=== PATIENT | male | born 1940 | race Caucasian/White ===

== ENCOUNTER 2018-01-25 11:35 | Outpatient (CLI) | payer MEDICARE ==
--- NOTE | 2018-01-25 23:59 | XRay Report ---
FINAL REPORT PROCEDURE: Three-view lumbar sacral spine series TECHNIQUE: Lumbar spine radiographs, including AP, lateral, and lumbosacral spot views. CPT 41140 HISTORY: BACK PAIN COMPARISON: No prior studies are available for comparison. FINDINGS: No fracture is visualized. There is mild thoracolumbar scoliosis convex the left apex at L1. There is also mild lumbar scoliosis convex the right apex at L3-4 disc space. There is moderate diffuse degenerative disc disease visualized lower thoracic and lumbar spine with disc space narrowing a marginal osteophyte formation. There is grade 1 spondylolisthesis L4 in relation L5 which appears to be degenerative. I do not see evidence of spondylolysis. Mild degenerative changes are seen in the SI joints. Moderate facet arthritis visualized inferiorly. Atherosclerotic changes seen in the abdominal aorta. An aneurysm is not identified. IMPRESSION: There is degenerative disc disease and facet arthritis as described above. There also scoliosis. No fracture is seen. There is grade 1 degenerative spondylolisthesis L4 in relation to L5..
== END 2018-01-25 11:36 | disposition home or self-care (01) ==
LOC: SPVIMAG 11:35
DX: M41.85 Other forms of scoliosis, thoracolumbar region (principal); M51.35 Other intervertebral disc degeneration, thoracolumbar region; M43.16 Spondylolisthesis, lumbar region; M47.897 Other spondylosis, lumbosacral region; I70.0 Atherosclerosis of aorta
CPT/HCPCS: 72100

== ENCOUNTER 2018-04-30 10:00 | Outpatient (CLI) | payer MEDICARE ==
--- NOTE | 2018-05-05 16:19 | Vascular Lab Report ---
Left Lower Extremity Venous Duplex Study: Reason for Exam: Pain and swelling of the left lower extremity. Comments on the Right: A limited duplex study was done of the proximal veins of the right lower extremity. All veins visualized are freely compressible without evidence of internal echogenicity. Flow is spontaneous and phasic throughout. No evidence of acute or chronic thrombus is seen in any of the vessels visualized. Comments on the Left: All veins visualized are freely compressible without evidence of internal echogenicity. Flow is spontaneous and phasic throughout. No evidence of acute or chronic thrombus is seen in any of the vessels visualized. A soft tissue change in the left knee area is consistent with a Rubio's cyst. Impression: No evidence of acute or chronic deep venous thrombosis in the left lower extremity. A soft tissue change in the left knee area is consistent with a Rubio's cyst.
--- NOTE | 2018-05-05 16:20 | Vascular Lab Report ---
LOWER EXTREMITY ARTERIAL DUPLEX: REASON FOR EXAM: Left thigh pain. COMMENTS ON THE RIGHT: A limited study was done of the right lower extremity. Biphasic waveforms and normal velocities are seen distally. Little if any plaque is seen in the tibial vessels. COMMENTS ON THE LEFT: Triphasic waveforms are seen proximally. Biphasic waveforms are seen distally. No significant velocity gradients are identified. No significant plaque is identified. Findings are consistent with normal perfusion. Findings are consistent with the ability to heal distal wounds. IMPRESSION: RIGHT: Essentially normal arterial flow. LEFT:Essentially normal arterial flow.
== END 2018-04-30 10:01 | disposition home or self-care (01) ==
LOC: VAS 10:00
DX: M79.652 Pain in left thigh (principal); M79.662 Pain in left lower leg; M79.89 Other specified soft tissue disorders; Z87.891 Personal history of nicotine dependence; I10 Essential (primary) hypertension; E78.5 Hyperlipidemia, unspecified; Z82.49 Family history of ischemic heart disease and other diseases of the circulatory system

== ENCOUNTER 2020-01-06 06:19 | Inpatient (IN) | payer MEDICARE ==
[2020-01-06] MEDS ORDERED: SODIUM CHLORIDE 0.9% 1000 ML 1,000 ML IV ONE ×2 (07:04→11:26)
--- NOTE | 2020-01-06 07:14 | Emergency Department Report ---
ED General Adult HPI - General Chief complaint: Syncope Stated complaint: GENERAL WEAKNESS Time Seen by Provider: 01/06/20 06:50 Source: family, EMS ( EMS documentation not available at time of chart dictation ), RN notes reviewed Mode of arrival: Stretcher Limitations: Language Barrier - History of Present Illness Initial comments: Patient is an 79-year-old gentleman. He is not known to myself previously. Primary care doctor: Dr. Franko Smith Cardiology: Dr. Abida Thompson He was brought to the hospital by EMS and with family. The patient has a histor y of Concha wayne, currently on Pradaxa, possible hypertension and diabetes. He was apparently admitted to another hospital a few days ago for issues with "low blood pressure." This is as per collateral information from family. Today, he is brought to the hospital by EMS with reports of abdominal pain, chest tightness, and loss of consciousness while defecating. The patient is a poor historian. He is not able to describe the qualitative nature of his symptoms, exacerbating or relieving factors. Family at the bedside, they do not believe he has had any bright red blood per rectum or hematemesis, they are not certain about urinary symptoms, they are not certain about a fever. -: Sudden Location: chest, abdomen Quality: other Consistency: other Improves with: other Worsens with: other Associated Symptoms: other - Related Data Home Medications Medication Instructions Recorded Confirmed Last Taken Aspirin [Aspirin BABY CHEW TAB] 81 mg PO DAILY 07/16/13 01/16/14 01/15/14 Atorvastatin (Nf) [Lipitor] 20 mg PO QHS 07/16/13 01/16/14 01/15/14 lisinopriL [Zestril TAB] 10 mg PO QDAY 07/16/13 01/16/14 01/15/14 Nitroglycerin [Nitrostat] 0.4 mg SL Q5M 11/23/13 01/16/14 Unknown Mirtazapine Solutab [Remeron 15mg 15 mg PO QHS 01/16/14 01/16/14 01/15/14 Solutab] Previous Rx's Medication Instructions Recorded Last Taken Type Amiodarone [Cordarone 200 MG TAB] 200 mg PO DAILY #30 tablet 01/17/14 Unknown Rx Warfarin [Coumadin] 3 mg PO QDAY #30 tablet 03/25/14 Unknown Rx Allergies Allergy/AdvReac Type Severity Reaction Status Date / Time acetaminophen [From [place]] Allergy Unknown Verified 07/16/13 02:36 ethambutol HCl Allergy Unknown Verified 07/16/13 02:36 [From Myambutol] hydrocodone bitartrate Allergy Unknown Verified 07/16/13 02:36 [From [place]] levofloxacin [From Levaquin] Allergy Swelling Verified 07/16/13 02:33 naproxen Allergy Unknown Verified 07/16/13 02:36 tramadol HCl [From Ultram] Allergy Unknown Verified 07/16/13 02:36 allpurinol Allergy Unknown Uncoded 07/16/13 02:36 sulindac Allergy Unknown Uncoded 07/16/13 02:36 ED Review of Systems ROS: Stated complaint: GENERAL WEAKNESS Other details as noted in HPI Comment: Unobtainable due to pts medical conditions Constitutional: malaise Cardiovascular: syncope Gastrointestinal: abdominal pain Genitourinary: as per HPI Musculoskeletal: back pain Skin: as per HPI Neurological: as per HPI, weakness Psychiatric: as per HPI Hematological/Lymphatic: as per HPI ED Past Medical Hx - Past Medical History Hx Hypertension: Yes Hx Heart Attack/AMI: Yes Hx Congestive Heart Failure: No Hx Diabetes: Yes Hx Asthma: No Hx COPD: No Hx HIV: No Additional medical history: high cholesterol,. Coronary artery disease. A. Fib - Surgical History Past Surgical History?: Yes Hx Open Heart Surgery: Yes (x2, most recent 2000) Additional Surgical History: Hernia repair, colon surgery (patient/family unaware of indication) - Social History Smoking Status: Former Smoker - Medications Home Medications: Home Medications Medication Instructions Recorded Confirmed Last Taken Type Aspirin [Aspirin BABY CHEW TAB] 81 mg PO DAILY 07/16/13 01/16/14 01/15/14 History Atorvastatin (Nf) [Lipitor] 20 mg PO QHS 07/16/13 01/16/14 01/15/14 History lisinopriL [Zestril TAB] 10 mg PO QDAY 07/16/13 01/16/14 01/15/14 History Nitroglycerin [Nitrostat] 0.4 mg SL Q5M 11/23/13 01/16/14 Unknown History Mirtazapine Solutab [Remeron 15mg 15 mg PO QHS 01/16/14 01/16/14 01/15/14 History Solutab] Amiodarone [Cordarone 200 MG TAB] 200 mg PO DAILY #30 tablet 01/17/14 Unknown Rx Warfarin [Coumadin] 3 mg PO QDAY #30 tablet 01/17/14 Unknown Rx ED Physical Exam - General Limitations: Language Barrier General appearance: alert, anxious - Head Head exam: Present: atraumatic, normocephalic - Eye Eye exam: Present: normal appearance, EOMI - ENT ENT exam: Present: normal exam, normal orophraynx, mucous membranes moist, normal external ear exam - Neck Neck exam: Present: normal inspection, full ROM. Absent: tenderness, meningismus - Respiratory Respiratory exam: Present: decreased breath sounds. Absent: respiratory distress, wheezes, rales, rhonchi, stridor - Cardiovascular Cardiovascular Exam: Present: regular rate, irregular rhythm. Absent: systolic murmur, diastolic murmur, rubs, gallop - GI/Abdominal GI/Abdominal exam: Present: soft, normal bowel sounds. Absent: distended, tenderness, guarding, rebound, rigid, pulsatile mass - Rectal Rectal exam: Present: normal inspection, normal rectal tone, heme (-) stool, other (Chaperoned by nurse Vinayak Garrett). Absent: heme (+) stool, black stool, bloody stool, fecal impaction, hemorrhoids, mass, tenderness - Extremities Exam Extremities exam: Present: normal inspection, full ROM, other (Moving 4 extremities spontaneously. There is no long bony tenderness. The pelvis is stable. Muscular compartments soft) - Back Exam Back exam: Present: normal inspection. Absent: tenderness, CVA tenderness (R), CVA tenderness (L), muscle spasm, paraspinal tenderness, vertebral tenderness - Neurological Exam Neurological exam: Present: alert (There is no facial droop. The tongue is midline. The extraocular movements are intact bilaterally.), other (The patient is awake. He is moving 4 extremities spontaneously. He is noted to be speaking in complete sentences as per family. He is not lethargic.) - Psychiatric Psychiatric exam: Present: anxious - Skin Skin exam: Present: warm, dry, intact, normal color. Absent: rash ED Course Vital Signs 01/06/20 01/06/20 01/06/20 06:42 06:45 06:48 Temperature Pulse Rate 70 68 68 Respiratory 24 17 17 Rate Blood Pressure 64/31 Blood Pressure 65/29 [Left] Blood Pressure 69/28 [Right] O2 Sat by Pulse 100 Oximetry 01/06/20 01/06/20 01/06/20 07:00 07:16 07:30 Temperature Pulse Rate 75 76 76 Respiratory 13 23 19 Rate Blood Pressure 64/31 64/31 64/31 Blood Pressure [Left] Blood Pressure [Right] O2 Sat by Pulse 95 Oximetry 01/06/20 01/06/20 01/06/20 07:45 08:00 08:10 Temperature Pulse Rate 83 82 Respiratory 29 H 24 24 Rate Blood Pressure 60/18 98/36 Blood Pressure [Left] Blood Pressure [Right] O2 Sat by Pulse 100 95 99 Oximetry 01/06/20 01/06/20 01/06/20 08:12 08:33 08:45 Temperature 97.9 F Pulse Rate 78 82 76 Respiratory 17 26 H Rate Blood Pressure 64/31 81/36 Blood Pressure [Left] Blood Pressure 98/36 [Right] O2 Sat by Pulse 99 99 Oximetry 01/06/20 01/06/20 01/06/20 09:00 09:15 09:30 Temperature Pulse Rate 79 72 75 Respiratory 25 H 17 29 H Rate Blood Pressure 70/33 83/35 87/36 Blood Pressure [Left] Blood Pressure [Right] O2 Sat by Pulse 100 96 100 Oximetry 01/06/20 09:45 Temperature Pulse Rate 88 Respiratory 26 H Rate Blood Pressure 89/35 Blood Pressure [Left] Blood Pressure [Right] O2 Sat by Pulse 100 Oximetry - Reevaluation(s) Reevaluation #1: 01/06/20 07:13 Differential diagnosis, including but not limited to: Orthostasis, vagal event, structural cardiac disease, intracranial hemorrhage, retroperitoneal hemorrhage, pneumonia, urinary tract infection, thyroid derangement, electrolyte derangement, medication interaction Assessment and plan: 79-year-old gentleman, with history of syncope, hypotension, guaiac negative on rectal exam, awake, alert, moving 4 extremities and protecting his airway. We will obtain IV access, initiate IV fluid therapy, obtain appropriate laboratory studies, x-ray the chest, EKG, noncontrast CT scan of the brain, cervical spine, abdomen/pelvis, and reassess. Reevaluation #2: 01/06/20 09:32 blood pressure is improved, 102/40. CT scan brain, cervical spine, abdomen pelvis negative for acute disease, x-ray of the chest is negative for acute disease. Labs show renal insufficiency, lactic acidosis, elevated TSH, hemoglobin 9, hematocrit 29, platelet count within normal limits, case is presented to hospital physician, Dr. Montanez, who admits patient to the medical service. 01/06/20 09:33 01/06/20 09:35 - EJ/Peripheral Line Neck L Time Out Performed: Yes Indications: nurses unable to establis Skin Cleansed in Sterile Fashion: Yes Size: 20 Dressing Placed: Tegaderm Patient Tolerated Procedure: well Neck R Time Out Performed: Yes Indications: nurses unable to establis Skin Cleansed in Sterile Fashion: Yes Size: 18 Dressing Placed: Tegaderm Patient Tolerated Procedure: well ED Medical Decision Making - Lab Data Result diagrams: 01/06/20 07:40 01/06/20 07:40 Vital Signs 01/06/20 06:48 Pulse Rate 68 Respiratory 17 Rate Blood Pressure 65/29 [Left] Blood Pressure 69/28 [Right] O2 Sat by Pulse 100 Oximetry - EKG Data -: EKG Interpreted by Az - EKG Data 01/06/20 09:57 Atrial fibrillation, 88 bpm, variable ventricular rate, QTC 475 ms, left axis deviation, poor R wave progression, not a STEMI. - Radiology Data Radiology results: pending, report reviewed, image reviewed Critical Care Time: Yes Critical care time in (mins) excluding proc time.: 60 Critical care attestation.: If time is entered above; I have spent that time in minutes in the direct care of this critically ill patient, excluding procedure time. ED Disposition Clinical Impression: SIRS (systemic inflammatory response syndrome), MATTHEW (acute kidney injury), Hypotension, History of syncope Disposition: OP ADMIT IP TO THIS HOSP Is pt being admited?: Yes Does the pt Need Aspirin: No Condition: Critical Referrals: PRIMARY CARE, [Primary Care Provider] - 3-5 Days
[2020-01-06 07:58] LABS: Hematocrit 29.3 % (35.5-45.6); Hemoglobin 9.2 gm/dl (11.8-15.2); Mean Corpuscular HGB Conc 31 % (32-34); Platelet Count 238 K/mm3 (140-440); Red Blood Count 4.33 M/mm3 (3.65-5.03); Red Cell Distribution Width 18.7 % (13.2-15.2)
--- NOTE | 2020-01-06 08:02 | XRay Report ---
CHEST 1 VIEW INDICATION / CLINICAL INFORMATION: syncope chest tightness. COMPARISON: 12/02/2014 FINDINGS: SUPPORT DEVICES: None. HEART / MEDIASTINUM: No significant abnormality. LUNGS / PLEURA: Mild chronic biapical pleural-parenchymal scarring.. Probable trace bilateral pleural effusions. No convincing evidence of pneumonia No pneumothorax. ADDITIONAL FINDINGS: No significant additional findings. IMPRESSION: 1. No acute findings. No interval change. Signer Name: Uzma Duque MD Signed: 01/06/2020 7:57 AM Workstation Name: [email or web address]
[2020-01-06 08:05] LABS: Mean Corpuscular Volume 68 fl (84-94)
[2020-01-06 08:10] LABS: INR 2.19 (0.87-1.13)
[2020-01-06 08:23] LABS: Albumin 2.9 g/dL (3.9-5); Calcium 8.4 mg/dL (8.4-10.2)
[2020-01-06 08:31] LABS: Band Neutrophils # (Manual) 1.9 K/mm3; Basophils % (Manual) 0 % (0.0-1.8); Hypochromasia 2+; Platelet Estimate Consistent w Auto; Total Cells Counted 100
[2020-01-06 08:32] LABS: Schistocytes Few; Target Cells Few; Tear Drop Cells Few
[2020-01-06] MEDS ORDERED: SODIUM CHLORIDE 0.9% 1000 ML 2,000 ML IV ONE (08:50)
[2020-01-06 08:57] LABS: Chol/HDL Ratio 2.5 %
--- NOTE | 2020-01-06 08:59 | Cat Scan Report ---
CT ABDOMEN AND PELVIS WITHOUT CONTRAST HISTORY: MAIN: abd pain hypotension syncope rph fall COMPARISON: None. TECHNIQUE: Axial CT images were obtained through the abdomen and pelvis without IV contrast. Sagittal and coronal reformatted images. All CT scans at this location are performed using CT dose reduction for ALARA by means of automated exposure control. FINDINGS: CT ABDOMEN: Lung Bases: Clear. Liver: No significant abnormality. Biliary: Cholecystectomy. No biliary dilatation is appreciated. Spleen: No significant abnormality. Unenlarged. Pancreas: No significant abnormality. Adrenals: No significant abnormality. Kidneys: No significant abnormality. Lymphatics: No lymphadenopathy. Vasculature: There are moderate diffuse aortic calcifications. No aneurysm. Bowel/Peritoneum: No significant abnormality. No free air. No free fluid. Normal appendix. CT PELVIS: : No significant abnormality. Osseous Structures: Osteopenia. Degenerative changes in the spine and hips. No acute fracture is dete cted. Additional Findings: None IMPRESSION: No acute process is identified in the abdomen or pelvis. Chronic findings as described above. Signer Name: Earl Ortega Jr, MD Signed: 01/06/2020 8:55 AM Workstation Name: [id number]
[2020-01-06] MEDS ORDERED: cefTRIAXone/NS 2 GM/100 ML 2 GM/100 ML BAG IV SCH (09:00)
--- NOTE | 2020-01-06 09:05 | Cat Scan Report ---
CT CERVICAL SPINE WITHOUT CONTRAST INDICATION: Syncope. TECHNIQUE: Axial CT images of the spine were obtained. Sagittal and coronal reformatted images were produced. Al l CT scans at this location are performed using CT dose reduction for ALARA by means of automated exp osure control. COMPARISON: None available. FINDINGS: ACUTE FRACTURE(S) OR SUBLUXATION: None. SPINAL DEGENERATIVE CHANGES: There is moderate disc height loss at C6-7 with reactive endplate osteop hyte formation. There is mild bilateral facet DJD at C4-5 and C5-6. PARASPINAL SOFT TISSUES: No soft tissue swelling or other acute abnormalities. ADDITIONAL FINDINGS: There is extensive biapical pleural scarring in the lung apices. IMPRESSION: 1. No acute fracture or subluxation in the spine in neutral position. Signer Name: Pedro Marte MD Signed: 01/06/2020 9:00 AM Workstation Name: [id number]
--- NOTE | 2020-01-06 09:09 | Cat Scan Report ---
NONENHANCED CT SCAN OF THE HEAD: INDICATION / CLINICAL INFORMATION: 79 years Male; MAIN: Syncope fall. TECHNIQUE: Routine CT head without contrast. All CT scans at this location are performed using CT dos e reduction for ALARA by means of automated exposure control. COMPARISON: CT scan of the head from 07/16/2013 FINDINGS: BRAIN / INTRACRANIAL CONTENTS: No intracranial sequela from the trauma. No scalp hematoma. No air-flu id level in the visualized portions of the paranasal sinuses. No acute hemorrhage, mass effect, midline shift, hydrocephalus, or acute, large territorial infarct. No chronic infarct or focal atrophy. Cortical sulci are slightly. As seen in the last CT scan, punctate calcification is seen in the right superior frontal sulcus and also in one of the right parietal lobe sulci.. In addition, larger calcification is seen in the right middle frontal gyrus laterally. These remain unchanged. Calcifications in the sulci are probably rebecca cified emboli.. However, right middle frontal gyrus calcification is nonspecific. CRANIOCERVICAL JUNCTION: No significant abnormality. ORBITS: No significant abnormality of visualized orbits. SINUSES / MASTOIDS: No significant abnormality of the visualized paranasal sinuses or mastoid air adriano ls. ADDITIONAL FINDINGS: None. IMPRESSION: No intracranial sequela from the trauma. Signer Name: Johan Wyatt MD Signed: 01/06/2020 9:05 AM Workstation Name: [id number]
[2020-01-06] MEDS ORDERED: LEVOTHYROXINE 100 MCG INJ IV ONE (10:30)
--- NOTE | 2020-01-06 11:38 | History and Physical Report ---
History of Present Illness Date of examination: 01/06/20 Date of admission: 01/06/20 10:12 Chief complaint: LOC History of present illness: Patient was seen and examined. Follow-up on current diagnosis. Overnight uneventful as no events directly reported to me. Patient denies any chest pain, shortness breath, nausea/vomiting or severe headaches. Imaging, nursing note, chart, labs and old chart reviewed. Discussed with patient. PMH: as hpi PSH: cabg, colon surgery?hernia SH: no tob, no etoh, no illicit drugs FH: he denies ROS: Constitutional: denies: fever ENT: denies: throat or neck pain Respiratory: denies: cough, shortness of breath Cardiovascular: denies: chest pain Endocrine: denies unexplained weight loss or gain Gastrointestinal: denies: abdominal pain, nausea Genitourinary: denies: dysuria Rectal: denies no incontinence, no bleeding, no itching, no discharge Musculoskeletal: denies swelling, myaglia, muscle weakness Skin: denies: rash Neurological: denies: headache +syncope Hematological/Lymphatic: denies: easy bleeding or easy bruising Allergic/Immunologic: no urticaria, no allergic rhinitis, no anaphylaxis Psych: denies sadness or hopelessness, SI/HI Medications and Allergies Allergies Allergy/AdvReac Type Severity Reaction Status Date / Time acetaminophen [From [place]] Allergy Unknown Verified 07/16/13 02:36 ethambutol HCl Allergy Unknown Verified 07/16/13 02:36 [From Myambutol] hydrocodone bitartrate Allergy Unknown Verified 07/16/13 02:36 [From Royal] levofloxacin [From Levaquin] Allergy Swelling Verified 07/16/13 02:33 naproxen Allergy Unknown Verified 07/16/13 02:36 tramadol HCl [From Ultram] Allergy Unknown Verified 07/16/13 02:36 allpurinol Allergy Unknown Uncoded 07/16/13 02:36 sulindac Allergy Unknown Uncoded 07/16/13 02:36 Home Medications Medication Instructions Recorded Confirmed Last Taken Type Aspirin [Aspirin BABY CHEW TAB] 81 mg PO DAILY 07/16/13 01/16/14 01/15/14 History Atorvastatin (Nf) [Lipitor] 20 mg PO QHS 07/16/13 01/16/14 01/15/14 History lisinopriL [Zestril TAB] 10 mg PO QDAY 07/16/13 01/16/14 01/15/14 History Nitroglycerin [Nitrostat] 0.4 mg SL Q5M 11/23/13 01/16/14 Unknown History Mirtazapine Solutab [Remeron 15mg 15 mg PO QHS 01/16/14 01/16/14 01/15/14 History Solutab] Amiodarone [Cordarone 200 MG TAB] 200 mg PO DAILY #30 tablet 01/17/14 Unknown Rx Warfarin [Coumadin] 3 mg PO QDAY #30 tablet 01/17/14 Unknown Rx Active Meds: Active Medications Sodium Chloride (Nacl 0.9% 1000 Ml) 1,000 mls @ 999 mls/hr IV BOLUS ONE Stop: 01/06/20 12:26 Exam - Physical Exam Narrative exam: Gen: thin frail, NAD, Awake, Alert, Orientated x 3 with many hints HEENT: NCAT, EOMI, PERRL, OP Clear Neck: supple, no adenopathy, no thyromegaly, no JVD CVS/Heart: RRR, normal S1S2, pulses present bilaterally Chest/Lungs: CTA B, Symmetrical chest expansion, good air entry bilaterally GI/Abdomen: soft, NTND, good bowel sounds, no guarding or rebound /Bladder: no suprapubic tenderness, no CVA or paraspinal tenderness Extermity/Skin: no c/c/e, no obvious rash MSK: FROM x 4 Neuro: CN 2-12 grossly intact, no new focal deficits Psych: calm - Constitutional Vitals: Temp Pulse Resp BP Pulse Ox 97.9 F 84 12 99/35 100 01/06/20 08:12 01/06/20 11:15 01/06/20 11:15 01/06/20 11:15 01/06/20 11:15 Results - Labs CBC & Chem 7: 01/06/20 07:40 01/06/20 07:40 Labs: Laboratory Last Values WBC 14.9 K/mm3 (4.5-11.0) H 01/06/20 07:40 RBC 4.33 M/mm3 (3.65-5.03) 01/06/20 07:40 Hgb 9.2 gm/dl (11.8-15.2) L 01/06/20 07:40 Hct 29.3 % (35.5-45.6) L 01/06/20 07:40 MCV 68 fl (84-94) L 01/06/20 07:40 MCH 21 pg (28-32) L 01/06/20 07:40 MCHC 31 % (32-34) L 01/06/20 07:40 RDW 18.7 % (13.2-15.2) H 01/06/20 07:40 Plt Count 238 K/mm3 (140-440) 01/06/20 07:40 Add Manual Diff Complete 01/06/20 07:40 Total Counted 100 01/06/20 07:40 Seg Neuts % (Manual) 79.0 % (40.0-70.0) H 01/06/20 07:40 Band Neutrophils % 13.0 % 01/06/20 07:40 Lymphocytes % (Manual) 2.0 % (13.4-35.0) L 01/06/20 07:40 Reactive Lymphs % (Man) 2.0 % 01/06/20 07:40 Monocytes % (Manual) 3.0 % (0.0-7.3) 01/06/20 07:40 Eosinophils % (Manual) 1.0 % (0.0-4.3) 01/06/20 07:40 Basophils % (Manual) 0 % (0.0-1.8) 01/06/20 07:40 Metamyelocytes % 0 % 01/06/20 07:40 Myelocytes % 0 % 01/06/20 07:40 Promyelocytes % 0 % 01/06/20 07:40 Blast Cells % 0 % 01/06/20 07:40 Nucleated RBC % Not Reportable 01/06/20 07:40 Seg Neutrophils # Man 11.8 K/mm3 (1.8-7.7) H 01/06/20 07:40 Band Neutrophils # 1.9 K/mm3 01/06/20 07:40 Lymphocytes # (Manual) 0.3 K/mm3 (1.2-5.4) L 01/06/20 07:40 Abs React Lymphs (Man) 0.3 K/mm3 01/06/20 07:40 Monocytes # (Manual) 0.4 K/mm3 (0.0-0.8) 01/06/20 07:40 Eosinophils # (Manual) 0.1 K/mm3 (0.0-0.4) 01/06/20 07:40 Basophils # (Manual) 0.0 K/mm3 (0.0-0.1) 01/06/20 07:40 Metamyelocytes # 0.0 K/mm3 01/06/20 07:40 Myelocytes # 0.0 K/mm3 01/06/20 07:40 Promyelocytes # 0.0 K/mm3 01/06/20 07:40 Blast Cells # 0.0 K/mm3 01/06/20 07:40 WBC Morphology Not Reportable 01/06/20 07:40 Hypersegmented Neuts Not Reportable 01/06/20 07:40 Hyposegmented Neuts Not Reportable 01/06/20 07:40 Hypogranular Neuts Not Reportable 01/06/20 07:40 Smudge Cells Not Reportable 01/06/20 07:40 Toxic Granulation Not Reportable 01/06/20 07:40 Toxic Vacuolation Not Reportable 01/06/20 07:40 Dohle Bodies Not Reportable 01/06/20 07:40 Pelger-Huet Anomaly Not Reportable 01/06/20 07:40 David Rods Not Reportable 01/06/20 07:40 Platelet Estimate Consistent w auto 01/06/20 07:40 Clumped Platelets Not Reportable 01/06/20 07:40 Plt Clumps, EDTA Not Reportable 01/06/20 07:40 Large Platelets Not Reportable 01/06/20 07:40 Giant Platelets Not Reportable 01/06/20 07:40 Platelet Satelliting Not Reportable 01/06/20 07:40 Plt Morphology Comment Not Reportable 01/06/20 07:40 RBC Morphology Not Reportable 01/06/20 07:40 Dimorphic RBCs Not Reportable 01/06/20 07:40 Polychromasia Few 01/06/20 07:40 Hypochromasia 2+ 01/06/20 07:40 Poikilocytosis Not Reportable 01/06/20 07:40 Anisocytosis Not Reportable 01/06/20 07:40 Microcytosis 1+ 01/06/20 07:40 Macrocytosis Not Reportable 01/06/20 07:40 Spherocytes Not Reportable 01/06/20 07:40 Pappenheimer Bodies Not Reportable 01/06/20 07:40 Sickle Cells Not Reportable 01/06/20 07:40 Target Cells Few 01/06/20 07:40 Tear Drop Cells Few 01/06/20 07:40 Ovalocytes Not Reportable 01/06/20 07:40 Helmet Cells Not Reportable 01/06/20 07:40 Mittal-Mead Bodies Not Reportable 01/06/20 07:40 Carson Rings Not Reportable 01/06/20 07:40 Caldwell Cells Not Reportable 01/06/20 07:40 Bite Cells Not Reportable 01/06/20 07:40 Crenated Cell Not Reportable 01/06/20 07:40 Elliptocytes Not Reportable 01/06/20 07:40 Acanthocytes (Spur) Not Reportable 01/06/20 07:40 Rouleaux Not Reportable 01/06/20 07:40 Hemoglobin C Crystals Not Reportable 01/06/20 07:40 Schistocytes Few 01/06/20 07:40 Malaria parasites Not Reportable 01/06/20 07:40 Cornel Bodies Not Reportable 01/06/20 07:40 Hem Pathologist Commnt No 01/06/20 07:40 PT 24.8 Sec. (12.2-14.9) H 01/06/20 07:40 INR 2.19 (0.87-1.13) H 01/06/20 07:40 APTT 74.0 Sec. (24.2-36.6) H* 01/06/20 07:40 Sodium 134 mmol/L (137-145) L 01/06/20 07:40 Potassium 3.9 mmol/L (3.6-5.0) 01/06/20 07:40 Chloride 100.6 mmol/L (98-107) 01/06/20 07:40 Carbon Dioxide 15 mmol/L (22-30) L 01/06/20 07:40 Anion Gap 22 mmol/L 01/06/20 07:40 BUN 26 mg/dL (9-20) H 01/06/20 07:40 Creatinine 2.5 mg/dL (0.8-1.5) H 01/06/20 07:40 Estimated GFR 25 ml/min 01/06/20 07:40 BUN/Creatinine Ratio 10 % 01/06/20 07:40 Glucose 227 mg/dL (75-100) H 01/06/20 07:40 Lactic Acid 5.30 mmol/L (0.7-2.0) H* 01/06/20 08:37 Calcium 8.4 mg/dL (8.4-10.2) 01/06/20 07:40 Magnesium 1.20 mg/dL (1.7-2.3) L 01/06/20 07:40 Total Bilirubin 0.60 mg/dL (0.1-1.2) 01/06/20 07:40 AST 23 units/L (5-40) 01/06/20 07:40 ALT 8 units/L (7-56) 01/06/20 07:40 Alkaline Phosphatase 50 units/L (35-129) 01/06/20 07:40 Total Creatine Kinase 99 units/L (55-170) 01/06/20 07:40 Troponin T 0.070 ng/mL (0.00-0.029) H 01/06/20 07:40 Total Protein 5.4 g/dL (6.3-8.2) L 01/06/20 07:40 Albumin 2.9 g/dL (3.9-5) L 01/06/20 07:40 Albumin/Globulin Ratio 1.2 % 01/06/20 07:40 Triglycerides 180 mg/dL (2-149) H 01/06/20 07:40 Cholesterol 95 mg/dL (50-199) 01/06/20 07:40 LDL Cholesterol Direct 45 mg/dL (50-130) L 01/06/20 07:40 HDL Cholesterol 38 mg/dL (40-59) L 01/06/20 07:40 Cholesterol/HDL Ratio 2.50 % 01/06/20 07:40 TSH 8.870 mlU/mL (0.270-4.200) H 01/06/20 07:40 Blood Type O POSITIVE 01/06/20 07:40 Antibody Screen Negative 01/06/20 07:40 Boyd/IV: IV Catheter Type [Left INT / Saline Lock External Jugular] IV Catheter Type [External INT / Saline Lock Jugular] Assessment and Plan Assessment and plan: Patient is a 79 yo Laotian speaking man (Daughter Jose at bedside was the Transit Mix Operator) with a history of hypertension, CAD s/p CABG, dyslipidemia and Atrial fibrillation on Pradaxa who presents to [facility] ED after a LOC episode. The episode was witness by the . Patient was on the toilet and had just had a BM, then he slumped over and his eyes rolled back. He was unconscious for 20-25 minutes per . He did not have any unusual movements. He was release from another hospital with similiar issues and hypotension. The patient is a poor historian. He is not able to describe the qualitative nature of his symptoms, exacerbating or relieving factors. In the ED he was found to be hypotensive with bp 65/29, Cr 2.5, BG 227, HCO3 15, wbc 14.9 and hemoglobin 9.2. * pCXR IMPRESSION: 1. No acute findings. No interval change. * CT abd/pelvis without contrast IMPRESSION: No acute process is identified in the abdomen or pelvis. Chronic findings as described above. * CT head w/o contrast IMPRESSION: 1. No acute fracture or subluxation in the spine in neutral position. Syncope suspected Orthostatic hypotension: treat with IVF, stop Lisinopril medications ARF, suspect ATN, Cr is 2.5, prior Cr was 1.0: treat with IVF, consult Nephrology, check renal ultrasound, monitor bmp closely Hypomagensemia: replete and recheck AFib controlled, continue current regimen Mild malnutrition: consult Development Chemist Elevated TSH: order free T4, total T3 Elevated BG: treat with ssi, check A1C Leukocytosis: check blood culture, UA, cxr full code DVT ppx
[2020-01-06] MEDS ORDERED: DEXTROSE 50% IN WATER (25GM) 50 ML SYRINGE IV PRN (11:39)
[2020-01-06] MEDS ORDERED: ONDANSETRON 4 MG/2 ML INJ IV PRN (11:40)
[2020-01-06] MEDS ORDERED: POLYETHYLENE GLYCOL 3350 17 GM POWDER PO PRN (11:40)
[2020-01-06] MEDS ORDERED: MAGNESIUM SULFATE 2 GM/50 ML BAG IV ONE ×2 (11:41→12:03)
[2020-01-06] MEDS ORDERED: SODIUM CHLORIDE 0.9% 1000 ML 1,000 ML ONE (12:03)
[2020-01-06] MEDS ORDERED: PANTOPRAZOLE 40 MG TAB PO ONE (12:04)
[2020-01-06] MEDS: PANTOPRAZOLE 40 MG TAB PO SCH (12:10)
[2020-01-06] MEDS ORDERED: NEOMY 3.5 MG/BACIT 400 UNITS/POLY B 5000 UNITS/GM OINT PACKET TP ONE (13:32)
[2020-01-06] MEDS ORDERED: diphenhydrAMINE 50 MG/ML VIAL IV PRN (13:34)
[2020-01-06] MEDS ORDERED: NEOMY 3.5 MG/BACIT 400 UNITS/POLY B 5000 UNITS/GM OINT PACKET TP PRN ×2 (13:34→14:02)
[2020-01-06] MEDS: methylPREDNISolone Sod Succinate 125 MG/2 ML INJ IV SCH ×2 (14:35→21:57)
[2020-01-06] MEDS: INSULIN LISPRO 100 UNIT/ML SUB-Q SCH ×2 (16:32→23:27)
--- NOTE | 2020-01-06 16:34 | Consultation ---
History of Present Illness - Reason for Consult Consult date: 01/06/20 acute renal failure Requesting physician: JORDANA MORROW - History of Present Illness He was brought to the hospital by EMS and with family. The patient has a history of A. fib, currently on Pradaxa, possible hypertension and diabetes. He was apparently admitted to another hospital a few days ago for issues with "low blood pressure." This is as per collateral information from family. Today, he is brought to the hospital by EMS with reports of abdominal pain, chest tightness, and loss of consciousness while defecating. The patient is a poor historian. He is not able to describe the qualitative nature of his symptoms, exacerbating or relieving factors. Family at the bedside, they do not believe he has had any bright red blood per rectum or hematemesis, they are not certain about urinary symptoms, they are not certain about a fever. Renal consult is requested for serum creatinine of 2.5. Back in 2013 his serum creatinine was 1.0. According to her daughter during recent hospitalization he was found to have him kidney disease and had seen a truck rental clerk as an outpatient. She however does not recall his name Past History Past Medical History: atrial fib, diabetes, hypertension, other (Chronic kidney disease) Past Surgical History: No surgical history Social history: no significant social history Family history: no significant family history Medications and Allergies Allergies Allergy/AdvReac Type Severity Reaction Status Date / Time acetaminophen [From [place]] Allergy Unknown Verified 01/06/20 13:32 ethambutol HCl Allergy Unknown Verified 01/06/20 13:32 [From Myambutol] hydralazine Allergy Unknown Verified 01/06/20 13:32 hydrocodone bitartrate Allergy Unknown Verified 01/06/20 13:32 [From [place]] levofloxacin [From Levaquin] Allergy Swelling Verified 01/06/20 13:32 naproxen Allergy Unknown Verified 01/06/20 13:32 rifampin [From Rifadin] Allergy Unknown Verified 01/06/20 13:32 tramadol HCl [From Ultram] Allergy Unknown Verified 01/06/20 13:32 allpurinol Allergy Unknown Uncoded 07/16/13 02:36 sulindac Allergy Unknown Uncoded 07/16/13 02:36 Home Medications Medication Instructions Recorded Confirmed Last Taken Type Atorvastatin (Nf) [Lipitor] 20 mg PO QHS 07/16/13 01/06/20 01/15/14 History lisinopriL [Zestril TAB] 20 mg PO QDAY 07/16/13 01/06/20 01/15/14 History Colchicine 0.6 mg PO BID 01/06/20 01/06/20 Unknown History Dabigatran Etexilate Mesylate 150 mg PO DAILY 01/06/20 01/06/20 Unknown History [Pradaxa] predniSONE 2.5 mg PO Q48H 01/06/20 01/06/20 Unknown History Active Meds: Active Medications Acetaminophen (Tylenol) 650 mg PO Q6H PRN PRN Reason: Non Cardiac Pain or Temp>100.5 Dextrose (D50w (25gm) Syringe) 50 ml IV Q30MIN PRN; Protocol PRN Reason: Hypoglycemia Diphenhydramine HCl (Benadryl) 25 mg IV Q6H PRN PRN Reason: Itching Heparin Sodium (Porcine) (Heparin) 5,000 unit SUB-Q Q12HR [facility] Sodium Chloride (Nacl 0.9% 1000 Ml) 1,000 mls @ 125 mls/hr IV DIRECT PAT Insulin Human Lispro (Humalog) 0 unit SUB-Q ACHS PAT; Protocol Methylprednisolone Sodium Succinate (Solu-Medrol) 60 mg IV Q8HR [facility] Neomycin/Polymyxin/Bacitracin (Triple Antibiotic) 2 applic TP BID PRN PRN Reason: Rash Ondansetron HCl (Zofran) 4 mg IV Q4H PRN PRN Reason: Nausea And Vomiting Pantoprazole Sodium (Protonix) 40 mg PO QDAY [facility] Last Admin: 01/06/20 12:10 Dose: 40 mg Documented by: Polyethylene Glycol (Miralax [id number]) 17 gm PO QDAY PRN PRN Reason: Constipation Review of Systems All systems: negative (As noted above) Exam - Vital Signs Vital signs: Vital Signs Pulse Resp 70 24 01/06/20 06:42 01/06/20 06:42 - General Appearance General appearance: well-developed, well-nourished, appears stated age EENT: PERRL, mucous membranes moist Neck: Present: neck supple Respiratory: Clear to Ascultation Heart: regular, irregularly irregular, S1S2, no murmurs Gastrointestinal: Present: normal, normoactive bowel sounds Integumentary: no rash, other (No edema) Results - Lab Results 01/06/20 07:40 01/06/20 07:40 Most recent lab results Calcium 8.4 mg/dL (8.4-10.2) 01/06/20 07:40 Magnesium 1.20 mg/dL (1.7-2.3) L 01/06/20 07:40 Assessment and Plan Impression * Acute on chronic renal failure * Syncope * Metabolic acidosis * Chronic atrial fibrillation * History of hypertension * Diabetes Recommendation * It appears that patient does have some degree of underlying chronic kidney disease. Baseline renal function however not known. His serum creatinine was 1.0 back in 2013 * Discontinue his metformin as well as lisinopril for now * Check a UA as well as a fractional excretion of sodium * Agree with renal ultrasound * Check vasculitis work-up * Shall hydrate patient gently and monitor his fluid status and electrolytes closely. Add bicarbonate to his IV fluid as well * Avoid nephrotoxins * Monitor fluid status and electrolytes closely * Discussed with patient's daughter at bedside * Thank you very much for the consultation. Shall follow along with you
[2020-01-07] MEDS: methylPREDNISolone Sod Succinate 125 MG/2 ML INJ IV SCH ×3 (05:19→21:15)
[2020-01-07 05:40] LABS: Hemoglobin 8.8 gm/dl (11.8-15.2); Mean Corpuscular HGB Conc 33 % (32-34); Platelet Count 212 K/mm3 (140-440); Red Cell Distribution Width 18.7 % (13.2-15.2)
[2020-01-07 05:42] LABS: Mean Corpuscular Volume 68 fl (84-94)
[2020-01-07 06:02] LABS: Calcium 7.9 mg/dL (8.4-10.2)
[2020-01-07] MEDS: PANTOPRAZOLE 40 MG TAB PO SCH (09:04)
[2020-01-07] MEDS: INSULIN LISPRO 100 UNIT/ML SUB-Q SCH ×4 (09:04→22:05)
[2020-01-07] MEDS: ACETAMINOPHEN 325 MG TAB PO PRN ×2 (09:05→21:15)
--- NOTE | 2020-01-07 09:06 | Progress Note ---
Assessment and Plan Assessment and plan: Patient is a 79 yo Laotian speaking man (Daughter Jose at bedside was the Commercial Floor Covering Installer) with a history of hypertension, CAD s/p CABG, dyslipidemia and Atrial fibrillation on Pradaxa who presents to [facility] ED after a LOC episode. The episode was witness by the . Patient was on the toilet and had just had a BM, then he slumped over and his eyes rolled back. He was unconscious for 20-25 minutes per . He did not have any unusual movements. He was release from another hospital with similiar issues and hypotension. The patient is a poor historian. He is not able to describe the qualitative nature of his symptoms, exacerbating or relieving factors. In the ED he was found to be hypotensive with bp 65/29, Cr 2.5, BG 227, HCO3 15, wbc 14.9 and hemoglobin 9.2. * pCXR IMPRESSION: 1. No acute findings. No interval change. * CT abd/pelvis without contrast IMPRESSION: No acute process is identified in the abdomen or pelvis. Chronic findings as described above. * CT head w/o contrast IMPRESSION: 1. No acute fracture or subluxation in the spine in neutral position. Syncope suspected Orthostatic hypotension: treat with IVF, stop Lisinopril medications ARF, suspect ATN, Cr is 2.5, prior Cr was 1.0: treat with IVF, consult Nephrology, check renal ultrasound, monitor bmp closely Hypomagensemia: replete and recheck AFib controlled, continue current regimen Mild malnutrition: consult Immigration Officer Elevated TSH: order free T4, total T3 Elevated BG: treat with ssi, check A1C Leukocytosis: check blood culture, UA, cxr Type 2 diabetes mellitus; Accu-Chek sliding scale coverage ADA diet Long-acting insulin, A1c more than 12.4 full code DVT ppx History Interval history: Patient seen and examined at the bedside Patient has blisters all over the body secondary to Reaction to allopurinol Patient is alert and awake responding appropriately Vital signs reviewed Hospitalist Physical - Constitutional Vitals: Temp Pulse Resp BP Pulse Ox 97.5 F L 74 22 141/22 97 01/07/20 04:00 01/07/20 07:21 01/07/20 07:21 01/07/20 07:21 01/07/20 07:21 General appearance: Present: no acute distress, well-nourished, other (Blisters all over the body) - EENT Eyes: Present: PERRL, EOM intact - Neck Neck: Present: supple, normal ROM - Respiratory Respiratory effort: normal Respiratory: bilateral: diminished, negative: rales, rhonchi, wheezing - Cardiovascular Rhythm: regular Heart Sounds: Present: S1 & S2 - Extremities Extremities: no ischemia Extremity abnormal: edema, other (Blisters) - Abdominal General gastrointestinal: soft, non-tender, non-distended, normal bowel sounds - Integumentary Integumentary: Present: clear, warm, rash (Blisters all over the body secondary to allopurinol allergy/side effect) - Psychiatric Psychiatric: appropriate mood/affect, cooperative - Neurologic Neurologic: moves all extremities Results - Labs CBC & Chem 7: 01/08/20 06:00 01/08/20 06:00 Labs: Laboratory Last Values WBC 6.9 K/mm3 (4.5-11.0) 01/07/20 05:06 RBC 4.00 M/mm3 (3.65-5.03) 01/07/20 05:06 Hgb 8.8 gm/dl (11.8-15.2) L 01/07/20 05:06 Hct 27.0 % (35.5-45.6) L 01/07/20 05:06 MCV 68 fl (84-94) L 01/07/20 05:06 MCH 22 pg (28-32) L 01/07/20 05:06 MCHC 33 % (32-34) 01/07/20 05:06 RDW 18.7 % (13.2-15.2) H 01/07/20 05:06 Plt Count 212 K/mm3 (140-440) 01/07/20 05:06 Add Manual Diff Complete 01/06/20 07:40 Total Counted 100 01/06/20 07:40 Seg Neuts % (Manual) 79.0 % (40.0-70.0) H 01/06/20 07:40 Band Neutrophils % 13.0 % 01/06/20 07:40 Lymphocytes % (Manual) 2.0 % (13.4-35.0) L 01/06/20 07:40 Reactive Lymphs % (Man) 2.0 % 01/06/20 07:40 Monocytes % (Manual) 3.0 % (0.0-7.3) 01/06/20 07:40 Eosinophils % (Manual) 1.0 % (0.0-4.3) 01/06/20 07:40 Basophils % (Manual) 0 % (0.0-1.8) 01/06/20 07:40 Metamyelocytes % 0 % 01/06/20 07:40 Myelocytes % 0 % 01/06/20 07:40 Promyelocytes % 0 % 01/06/20 07:40 Blast Cells % 0 % 01/06/20 07:40 Nucleated RBC % Not Reportable 01/06/20 07:40 Seg Neutrophils # Man 11.8 K/mm3 (1.8-7.7) H 01/06/20 07:40 Band Neutrophils # 1.9 K/mm3 01/06/20 07:40 Lymphocytes # (Manual) 0.3 K/mm3 (1.2-5.4) L 01/06/20 07:40 Abs React Lymphs (Man) 0.3 K/mm3 01/06/20 07:40 Monocytes # (Manual) 0.4 K/mm3 (0.0-0.8) 01/06/20 07:40 Eosinophils # (Manual) 0.1 K/mm3 (0.0-0.4) 01/06/20 07:40 Basophils # (Manual) 0.0 K/mm3 (0.0-0.1) 01/06/20 07:40 Metamyelocytes # 0.0 K/mm3 01/06/20 07:40 Myelocytes # 0.0 K/mm3 01/06/20 07:40 Promyelocytes # 0.0 K/mm3 01/06/20 07:40 Blast Cells # 0.0 K/mm3 01/06/20 07:40 WBC Morphology Not Reportable 01/06/20 07:40 Hypersegmented Neuts Not Reportable 01/06/20 07:40 Hyposegmented Neuts Not Reportable 01/06/20 07:40 Hypogranular Neuts Not Reportable 01/06/20 07:40 Smudge Cells Not Reportable 01/06/20 07:40 Toxic Granulation Not Reportable 01/06/20 07:40 Toxic Vacuolation Not Reportable 01/06/20 07:40 Dohle Bodies Not Reportable 01/06/20 07:40 Pelger-Huet Anomaly Not Reportable 01/06/20 07:40 David Rods Not Reportable 01/06/20 07:40 Platelet Estimate Consistent w auto 01/06/20 07:40 Clumped Platelets Not Reportable 01/06/20 07:40 Plt Clumps, EDTA Not Reportable 01/06/20 07:40 Large Platelets Not Reportable 01/06/20 07:40 Giant Platelets Not Reportable 01/06/20 07:40 Platelet Satelliting Not Reportable 01/06/20 07:40 Plt Morphology Comment Not Reportable 01/06/20 07:40 RBC Morphology Not Reportable 01/06/20 07:40 Dimorphic RBCs Not Reportable 01/06/20 07:40 Polychromasia Few 01/06/20 07:40 Hypochromasia 2+ 01/06/20 07:40 Poikilocytosis Not Reportable 01/06/20 07:40 Anisocytosis Not Reportable 01/06/20 07:40 Microcytosis 1+ 01/06/20 07:40 Macrocytosis Not Reportable 01/06/20 07:40 Spherocytes Not Reportable 01/06/20 07:40 Pappenheimer Bodies Not Reportable 01/06/20 07:40 Sickle Cells Not Reportable 01/06/20 07:40 Target Cells Few 01/06/20 07:40 Tear Drop Cells Few 01/06/20 07:40 Ovalocytes Not Reportable 01/06/20 07:40 Helmet Cells Not Reportable 01/06/20 07:40 Mittal-Witherbee Bodies Not Reportable 01/06/20 07:40 [place] Rings Not Reportable 01/06/20 07:40 [place] Cells Not Reportable 01/06/20 07:40 Bite Cells Not Reportable 01/06/20 07:40 Crenated Cell Not Reportable 01/06/20 07:40 Elliptocytes Not Reportable 01/06/20 07:40 Acanthocytes (Spur) Not Reportable 01/06/20 07:40 Rouleaux Not Reportable 01/06/20 07:40 Hemoglobin C Crystals Not Reportable 01/06/20 07:40 Schistocytes Few 01/06/20 07:40 Malaria parasites Not Reportable 01/06/20 07:40 Cornel Bodies Not Reportable 01/06/20 07:40 Hem Pathologist Commnt No 01/06/20 07:40 PT 24.8 Sec. (12.2-14.9) H 01/06/20 07:40 INR 2.19 (0.87-1.13) H 01/06/20 07:40 APTT 74.0 Sec. (24.2-36.6) H* 01/06/20 07:40 Sodium 132 mmol/L (137-145) L 01/07/20 05:06 Potassium 4.4 mmol/L (3.6-5.0) 01/07/20 05:06 Chloride 103.3 mmol/L (98-107) 01/07/20 05:06 Carbon Dioxide 17 mmol/L (22-30) L 01/07/20 05:06 Anion Gap 16 mmol/L 01/07/20 05:06 BUN 25 mg/dL (9-20) H 01/07/20 05:06 Creatinine 1.5 mg/dL (0.8-1.5) 01/07/20 05:06 Estimated GFR 45 ml/min 01/07/20 05:06 BUN/Creatinine Ratio 17 % 01/07/20 05:06 Glucose 296 mg/dL (75-100) H 01/07/20 05:06 POC Glucose 401 (70-105) H 01/06/20 23:30 Hemoglobin A1c 12.4 % (4-6) H 01/06/20 15:36 Lactic Acid 1.90 mmol/L (0.7-2.0) 01/07/20 05:06 Calcium 7.9 mg/dL (8.4-10.2) L 01/07/20 05:06 Magnesium 2.20 mg/dL (1.7-2.3) 01/07/20 05:06 Total Bilirubin 0.60 mg/dL (0.1-1.2) 01/06/20 07:40 AST 23 units/L (5-40) 01/06/20 07:40 ALT 8 units/L (7-56) 01/06/20 07:40 Alkaline Phosphatase 50 units/L (35-129) 01/06/20 07:40 Total Creatine Kinase 99 units/L (55-170) 01/06/20 07:40 Troponin T 0.070 ng/mL (0.00-0.029) H 01/06/20 07:40 Total Protein 5.4 g/dL (6.3-8.2) L 01/06/20 07:40 Albumin 2.9 g/dL (3.9-5) L 01/06/20 07:40 Albumin/Globulin Ratio 1.2 % 01/06/20 07:40 Triglycerides 180 mg/dL (2-149) H 01/06/20 07:40 Cholesterol 95 mg/dL (50-199) 01/06/20 07:40 LDL Cholesterol Direct 45 mg/dL (50-130) L 01/06/20 07:40 HDL Cholesterol 38 mg/dL (40-59) L 01/06/20 07:40 Cholesterol/HDL Ratio 2.50 % 01/06/20 07:40 TSH 8.870 mlU/mL (0.270-4.200) H 01/06/20 07:40 Free T4 1.63 ng/dL (0.76-1.46) H 01/06/20 15:36 Blood Type O POSITIVE 01/06/20 07:40 Antibody Screen Negative 01/06/20 07:40 Boyd/IV: Voiding Method Urinal IV Catheter Type [Left INT / Saline Lock External Jugular] IV Catheter Type [External INT / Saline Lock Jugular] Active Medications - Current Medications Current Medications: Generic Name Dose Route Start Last Admin Trade Name Freq PRN Reason Stop Dose Admin Acetaminophen 650 mg 01/06/20 11:40 Tylenol PO Q6H PRN Non Cardiac Pain or Temp>100.5 Dextrose 50 ml 01/06/20 11:39 D50w (25gm) Syringe IV Q30MIN PRN Hypoglycemia Protocol Diphenhydramine HCl 25 mg 01/06/20 13:34 Benadryl IV Q6H PRN Itching Heparin Sodium (Porcine) 5,000 unit 01/07/20 22:00 Heparin SUB-Q Q12HR PAT Sodium Chloride 1,000 mls @ 125 mls/hr 01/06/20 12:00 Nacl 0.9% 1000 Ml IV DIRECT PAT Insulin Human Lispro 0 unit 01/06/20 16:30 01/06/20 23:27 Humalog SUB-Q 10 unit ACHS PAT Administration Protocol Methylprednisolone Sodium Succinate 60 mg 01/06/20 14:00 01/07/20 05:19 Solu-Medrol IV 60 mg Q8HR PAT Administration Neomycin/Polymyxin/Bacitracin 2 applic 01/06/20 14:02 Triple Antibiotic TP BID PRN Rash Ondansetron HCl 4 mg 01/06/20 11:40 Zofran IV Q4H PRN Nausea And Vomiting Pantoprazole Sodium 40 mg 01/06/20 12:00 01/06/20 12:10 Protonix PO 40 mg QDAY PAT Administration Polyethylene Glycol 17 gm 01/06/20 11:40 Miralax 3350 PO QDAY PRN Constipation
--- NOTE | 2020-01-07 12:22 | Progress Note ---
Assessment and Plan Impression * Acute on chronic renal failure * Syncope * Metabolic acidosis * Chronic atrial fibrillation * History of hypertension * Diabetes Recommendation * It appears that patient does have some degree of underlying chronic kidney disease. Baseline renal function however not known. His serum creatinine was 1.0 back in 2014 * His renal function seems to be improving and he is also nonoliguric. * Awaiting results of urine studies as well as vasculitis work-up. * Renal ultrasound report is also pending. * Continue IV hydration with bicarbonate containing fluid * Avoid nephrotoxins * Monitor fluid status and electrolytes closely * Check urine for eosinophils as well Subjective Date of service: 01/07/20 Interval history: Patient is comfortable today. Denies any shortness of breath. Objective - Vital Signs Vital signs: Vital Signs - 12hr 01/07/20 01/07/20 01/07/20 00:21 00:31 00:41 Temperature Pulse Rate 80 78 78 Pulse Rate [ From Monitor] Respiratory 21 17 23 Rate Blood Pressure 114/49 114/49 114/49 O2 Sat by Pulse 98 99 98 Oximetry 01/07/20 01/07/20 01/07/20 00:51 01:01 01:11 Temperature Pulse Rate 78 78 76 Pulse Rate [ From Monitor] Respiratory 23 20 23 Rate Blood Pressure 114/49 91/41 91/41 O2 Sat by Pulse 98 98 98 Oximetry 01/07/20 01/07/20 01/07/20 01:21 01:31 01:41 Temperature Pulse Rate 75 75 77 Pulse Rate [ From Monitor] Respiratory 23 24 23 Rate Blood Pressure 91/41 91/41 91/41 O2 Sat by Pulse 95 99 99 Oximetry 01/07/20 01/07/20 01/07/20 01:51 02:00 02:11 Temperature Pulse Rate 75 74 74 Pulse Rate [ From Monitor] Respiratory 22 22 18 Rate Blood Pressure 91/41 110/44 110/44 O2 Sat by Pulse 99 96 98 Oximetry 01/07/20 01/07/20 01/07/20 02:21 02:31 02:41 Temperature Pulse Rate 74 74 74 Pulse Rate [ From Monitor] Respiratory 20 15 22 Rate Blood Pressure 110/44 110/44 110/44 O2 Sat by Pulse 98 98 100 Oximetry 01/07/20 01/07/20 01/07/20 02:51 03:00 03:11 Temperature Pulse Rate 71 73 71 Pulse Rate [ From Monitor] Respiratory 21 16 21 Rate Blood Pressure 110/44 122/48 122/48 O2 Sat by Pulse 99 97 100 Oximetry 01/07/20 01/07/20 01/07/20 03:21 03:31 03:41 Temperature Pulse Rate 71 73 72 Pulse Rate [ From Monitor] Respiratory 22 21 16 Rate Blood Pressure 122/48 122/48 122/48 O2 Sat by Pulse 98 99 97 Oximetry 01/07/20 01/07/20 01/07/20 03:51 04:00 04:11 Temperature 97.5 F L Pulse Rate 79 76 74 Pulse Rate [ 75 From Monitor] Respiratory 25 H 22 23 Rate Blood Pressure 122/48 115/51 115/51 O2 Sat by Pulse 98 95 99 Oximetry 01/07/20 01/07/20 01/07/20 04:21 04:31 04:41 Temperature Pulse Rate 74 75 74 Pulse Rate [ From Monitor] Respiratory 15 22 20 Rate Blood Pressure 115/51 115/51 115/51 O2 Sat by Pulse 98 96 99 Oximetry 01/07/20 01/07/20 01/07/20 04:51 05:00 05:11 Temperature Pulse Rate 72 71 70 Pulse Rate [ From Monitor] Respiratory 21 20 22 Rate Blood Pressure 115/51 112/48 112/48 O2 Sat by Pulse 99 97 98 Oximetry 01/07/20 01/07/20 01/07/20 05:21 05:31 05:41 Temperature Pulse Rate 71 72 71 Pulse Rate [ From Monitor] Respiratory 16 22 19 Rate Blood Pressure 112/48 112/48 112/48 O2 Sat by Pulse 99 99 99 Oximetry 01/07/20 01/07/20 01/07/20 05:51 06:00 06:11 Temperature Pulse Rate 73 70 70 Pulse Rate [ From Monitor] Respiratory 19 20 20 Rate Blood Pressure 112/48 131/53 131/53 O2 Sat by Pulse 99 97 99 Oximetry 01/07/20 01/07/20 01/07/20 06:21 06:31 06:41 Temperature Pulse Rate 73 72 69 Pulse Rate [ From Monitor] Respiratory 25 H 23 20 Rate Blood Pressure 131/53 131/53 131/53 O2 Sat by Pulse 99 99 98 Oximetry 01/07/20 01/07/20 01/07/20 06:51 07:01 07:11 Temperature Pulse Rate 72 68 69 Pulse Rate [ From Monitor] Respiratory 19 22 23 Rate Blood Pressure 131/53 141/22 141/22 O2 Sat by Pulse 99 99 99 Oximetry 01/07/20 01/07/20 07:21 08:00 Temperature 97.6 F Pulse Rate 74 Pulse Rate [ From Monitor] Respiratory 22 Rate Blood Pressure 141/22 O2 Sat by Pulse 97 Oximetry - General Appearance General appearance: well-developed, well-nourished, appears stated age EENT: PERRL, mucous membranes moist Neck: no JVD, no thyromegaly, no carotid bruit, supple Respiratory: Present: Clear to Ascultation Cardiology: regular, normal heart rate, S1S2, no murmurs Gastrointestinal: normal, normoactive bowel sounds Integumentary: other (Blisters noted in his skin) - Lab 01/07/20 05:06 01/07/20 05:06 Most recent lab results Calcium 7.9 mg/dL (8.4-10.2) L 01/07/20 05:06 Magnesium 2.20 mg/dL (1.7-2.3) 01/07/20 05:06 Medications & Allergies - Medications Allergies/Adverse Reactions: Allergies acetaminophen [From [place]] Allergy (Verified 01/06/20 13:32) Unknown ethambutol HCl [From Myambutol] Allergy (Verified 01/06/20 13:32) Unknown hydralazine Allergy (Verified 01/06/20 13:32) Unknown hydrocodone bitartrate [From [place]] Allergy (Verified 01/06/20 13:32) Unknown levofloxacin [From Levaquin] Allergy (Verified 01/06/20 13:32) Swelling naproxen Allergy (Verified 01/06/20 13:32) Unknown rifampin [From Rifadin] Allergy (Verified 01/06/20 13:32) Unknown tramadol HCl [From Ultram] Allergy (Verified 01/06/20 13:32) Unknown allpurinol Allergy (Uncoded 07/16/13 02:36) Unknown sulindac Allergy (Uncoded 07/16/13 02:36) Unknown Home Medications: Home Medications Medication Instructions Recorded Confirmed Last Taken Type Atorvastatin (Nf) [Lipitor] 20 mg PO QHS 07/16/13 01/06/20 01/15/14 History lisinopriL [Zestril TAB] 20 mg PO QDAY 07/16/13 01/06/20 01/15/14 History Colchicine 0.6 mg PO BID 01/06/20 01/06/20 Unknown History Dabigatran Etexilate Mesylate 150 mg PO DAILY 01/06/20 01/06/20 Unknown History [Pradaxa] predniSONE 2.5 mg PO Q48H 01/06/20 01/06/20 Unknown History Active Medications: Generic Name Dose Route Start Last Admin Trade Name Freq PRN Reason Stop Dose Admin Acetaminophen 650 mg 01/06/20 11:40 01/07/20 09:05 Tylenol PO 650 mg Q6H PRN Administration Non Cardiac Pain or Temp>100.5 Dextrose 50 ml 01/06/20 11:39 D50w (25gm) Syringe IV Q30MIN PRN Hypoglycemia Protocol Diphenhydramine HCl 25 mg 01/06/20 13:34 Benadryl IV Q6H PRN Itching Heparin Sodium (Porcine) 5,000 unit 01/07/20 22:00 Heparin SUB-Q Q12HR [facility] Sodium Chloride 1,000 mls @ 125 mls/hr 01/06/20 12:00 Nacl 0.9% 1000 Ml IV DIRECT PAT Insulin Human Isoph/Insulin Regular 10 unit 01/07/20 17:00 Humulin 70/30 SUB-Q BIDDIAB PAT Insulin Human Lispro 0 unit 01/06/20 16:30 01/07/20 09:04 Humalog SUB-Q 10 unit ACHS PAT Administration Protocol Methylprednisolone Sodium Succinate 60 mg 01/06/20 14:00 01/07/20 05:19 Solu-Medrol IV 60 mg Q8HR PAT Administration Neomycin/Polymyxin/Bacitracin 2 applic 01/06/20 14:02 Triple Antibiotic TP BID PRN Rash Ondansetron HCl 4 mg 01/06/20 11:40 Zofran IV Q4H PRN Nausea And Vomiting Pantoprazole Sodium 40 mg 01/06/20 12:00 01/07/20 09:04 Protonix PO 40 mg QDAY PAT Administration Polyethylene Glycol 17 gm 01/06/20 11:40 Miralax 3350 PO QDAY PRN Constipation
[2020-01-07] MEDS: INSULIN NPH/REGULAR 70/30 INJ SUB-Q SCH (17:18)
[2020-01-07] MEDS: oxyCODONE /ACETAMINOPHEN 5-325MG TAB PO PRN (17:19)
[2020-01-07 17:44] LABS: Bilirubin,Urine NEG (Negative); Blood,Urine NEG (Negative); Color,Urine Yellow (Yellow); Mucus,Urine FEW /HPF; Protein,Urine <15 mg/dL mg/dL (Negative); Urobilinogen,Urine < 2.0 mg/dL (<2.0)
[2020-01-07] MEDS: HEPARIN 5,000 UNIT/1 ML VIAL SUB-Q SCH (21:14)
[2020-01-08] MEDS: methylPREDNISolone Sod Succinate 125 MG/2 ML INJ IV SCH ×3 (05:36→23:14)
[2020-01-08] MEDS: oxyCODONE /ACETAMINOPHEN 5-325MG TAB PO PRN ×2 (05:36→23:14)
[2020-01-08 06:37] LABS: Hematocrit 30.2 % (35.5-45.6); Hemoglobin 9.8 gm/dl (11.8-15.2); Mean Corpuscular HGB Conc 32 % (32-34); Platelet Count 308 K/mm3 (140-440); Red Cell Distribution Width 19.4 % (13.2-15.2)
[2020-01-08 06:40] LABS: Mean Corpuscular Volume 67 fl (84-94)
[2020-01-08 06:53] LABS: Calcium 8.8 mg/dL (8.4-10.2)
[2020-01-08] MEDS: INSULIN LISPRO 100 UNIT/ML SUB-Q SCH ×4 (08:36→22:30)
[2020-01-08] MEDS: INSULIN NPH/REGULAR 70/30 INJ SUB-Q SCH ×2 (08:36→17:24)
[2020-01-08] MEDS: ACETAMINOPHEN 325 MG TAB PO PRN (10:10)
[2020-01-08] MEDS: HEPARIN 5,000 UNIT/1 ML VIAL SUB-Q SCH ×2 (10:11→23:13)
[2020-01-08] MEDS: PANTOPRAZOLE 40 MG TAB PO SCH (10:11)
--- NOTE | 2020-01-08 10:41 | Progress Note ---
Assessment and Plan Assessment and plan: --Allergic reaction to allopurinol; Patient accidentally took allopurinol per family member , developed blisters all over the body On steroids, antihistamines, wound and supportive care --Syncope; probably secondary to orthostatic hypotension Fall precautions, syncope work-up, PT OT Discharge planning --Acute renal failure; suspect ATN Gentle hydration, monitor renal function, avoid nephrotoxins Nephrology following --Severe protein calorie malnutrition/hypoalbuminemia Nutrition supplements, supportive care, nutrition consult --History of A. fib; rate controlled Continue beta-blockers, chronic anticoagulation On Pradaxa, not sure with the patient is compliant Check with family --Type 2 diabetes mellitus; moderate control Accu-Chek sliding scale coverage ADA diet and insulin A1c more than 12, diabetic education --History of gout; on colchicine Allergy to allopurinol, allopurinol held --Physical therapy, Occupational Therapy --Discharge planning per case management --Full CODE STATUS --DVT prophylaxis: Heparin renal dose DC planning per case management Monitor closely and adjust management as needed Discussed with nephrology Critical care time 32 minutes History Interval history: Patient seen and examined at the bedside this morning Patient's medications, patient's chart reviewed Continues to have some blisters over the body No new episodes of syncope Vital signs reviewed Hospitalist Physical - Constitutional Vitals: Temp Pulse Resp BP Pulse Ox 98.8 F 67 10 L 130/62 100 01/08/20 03:48 01/08/20 09:20 01/08/20 09:20 01/08/20 09:20 01/08/20 09:20 General appearance: Present: no acute distress, well-nourished - EENT Eyes: Present: PERRL, EOM intact - Neck Neck: Present: supple, normal ROM - Respiratory Respiratory effort: normal Respiratory: bilateral: diminished, negative: rales, rhonchi, wheezing - Cardiovascular Rhythm: regular Heart Sounds: Present: S1 & S2 - Extremities Extremities: no ischemia Extremity abnormal: edema, other (Blisters on extremities and body) - Integumentary Integumentary: Present: rash (Blisters on extremities and body due to allopurinol) - Psychiatric Psychiatric: cooperative - Neurologic Neurologic: moves all extremities Results - Labs CBC & Chem 7: 01/08/20 06:00 01/08/20 06:00 Labs: Laboratory Last Values WBC 16.8 K/mm3 (4.5-11.0) H 01/08/20 06:00 RBC 4.50 M/mm3 (3.65-5.03) 01/08/20 06:00 Hgb 9.8 gm/dl (11.8-15.2) L 01/08/20 06:00 Hct 30.2 % (35.5-45.6) L 01/08/20 06:00 MCV 67 fl (84-94) L 01/08/20 06:00 MCH 22 pg (28-32) L 01/08/20 06:00 MCHC 32 % (32-34) 01/08/20 06:00 RDW 19.4 % (13.2-15.2) H 01/08/20 06:00 Plt Count 308 K/mm3 (140-440) 01/08/20 06:00 Add Manual Diff Complete 01/06/20 07:40 Total Counted 100 01/06/20 07:40 Seg Neuts % (Manual) 79.0 % (40.0-70.0) H 01/06/20 07:40 Band Neutrophils % 13.0 % 01/06/20 07:40 Lymphocytes % (Manual) 2.0 % (13.4-35.0) L 01/06/20 07:40 Reactive Lymphs % (Man) 2.0 % 01/06/20 07:40 Monocytes % (Manual) 3.0 % (0.0-7.3) 01/06/20 07:40 Eosinophils % (Manual) 1.0 % (0.0-4.3) 01/06/20 07:40 Basophils % (Manual) 0 % (0.0-1.8) 01/06/20 07:40 Metamyelocytes % 0 % 01/06/20 07:40 Myelocytes % 0 % 01/06/20 07:40 Promyelocytes % 0 % 01/06/20 07:40 Blast Cells % 0 % 01/06/20 07:40 Nucleated RBC % Not Reportable 01/06/20 07:40 Seg Neutrophils # Man 11.8 K/mm3 (1.8-7.7) H 01/06/20 07:40 Band Neutrophils # 1.9 K/mm3 01/06/20 07:40 Lymphocytes # (Manual) 0.3 K/mm3 (1.2-5.4) L 01/06/20 07:40 Abs React Lymphs (Man) 0.3 K/mm3 01/06/20 07:40 Monocytes # (Manual) 0.4 K/mm3 (0.0-0.8) 01/06/20 07:40 Eosinophils # (Manual) 0.1 K/mm3 (0.0-0.4) 01/06/20 07:40 Basophils # (Manual) 0.0 K/mm3 (0.0-0.1) 01/06/20 07:40 Metamyelocytes # 0.0 K/mm3 01/06/20 07:40 Myelocytes # 0.0 K/mm3 01/06/20 07:40 Promyelocytes # 0.0 K/mm3 01/06/20 07:40 Blast Cells # 0.0 K/mm3 01/06/20 07:40 WBC Morphology Not Reportable 01/06/20 07:40 Hypersegmented Neuts Not Reportable 01/06/20 07:40 Hyposegmented Neuts Not Reportable 01/06/20 07:40 Hypogranular Neuts Not Reportable 01/06/20 07:40 Smudge Cells Not Reportable 01/06/20 07:40 Toxic Granulation Not Reportable 01/06/20 07:40 Toxic Vacuolation Not Reportable 01/06/20 07:40 Dohle Bodies Not Reportable 01/06/20 07:40 Pelger-Huet Anomaly Not Reportable 01/06/20 07:40 David Rods Not Reportable 01/06/20 07:40 Platelet Estimate Consistent w auto 01/06/20 07:40 Clumped Platelets Not Reportable 01/06/20 07:40 Plt Clumps, EDTA Not Reportable 01/06/20 07:40 Large Platelets Not Reportable 01/06/20 07:40 Giant Platelets Not Reportable 01/06/20 07:40 Platelet Satelliting Not Reportable 01/06/20 07:40 Plt Morphology Comment Not Reportable 01/06/20 07:40 RBC Morphology Not Reportable 01/06/20 07:40 Dimorphic RBCs Not Reportable 01/06/20 07:40 Polychromasia Few 01/06/20 07:40 Hypochromasia 2+ 01/06/20 07:40 Poikilocytosis Not Reportable 01/06/20 07:40 Anisocytosis Not Reportable 01/06/20 07:40 Microcytosis 1+ 01/06/20 07:40 Macrocytosis Not Reportable 01/06/20 07:40 Spherocytes Not Reportable 01/06/20 07:40 Pappenheimer Bodies Not Reportable 01/06/20 07:40 Sickle Cells Not Reportable 01/06/20 07:40 Target Cells Few 01/06/20 07:40 Tear Drop Cells Few 01/06/20 07:40 Ovalocytes Not Reportable 01/06/20 07:40 Helmet Cells Not Reportable 01/06/20 07:40 [place] Bodies Not Reportable 01/06/20 07:40 [place] Rings Not Reportable 01/06/20 07:40 [place] Cells Not Reportable 01/06/20 07:40 Bite Cells Not Reportable 01/06/20 07:40 Crenated Cell Not Reportable 01/06/20 07:40 Elliptocytes Not Reportable 01/06/20 07:40 Acanthocytes (Spur) Not Reportable 01/06/20 07:40 Rouleaux Not Reportable 01/06/20 07:40 Hemoglobin C Crystals Not Reportable 01/06/20 07:40 Schistocytes Few 01/06/20 07:40 Malaria parasites Not Reportable 01/06/20 07:40 Cornel Bodies Not Reportable 01/06/20 07:40 Hem Pathologist Commnt No 01/06/20 07:40 PT 24.8 Sec. (12.2-14.9) H 01/06/20 07:40 INR 2.19 (0.87-1.13) H 01/06/20 07:40 APTT 74.0 Sec. (24.2-36.6) H* 01/06/20 07:40 Sodium 135 mmol/L (137-145) L 01/08/20 06:00 Potassium 4.2 mmol/L (3.6-5.0) 01/08/20 06:00 Chloride 102.0 mmol/L (98-107) 01/08/20 06:00 Carbon Dioxide 12 mmol/L (22-30) L 01/08/20 06:00 Anion Gap 25 mmol/L 01/08/20 06:00 BUN 30 mg/dL (9-20) H 01/08/20 06:00 Creatinine 1.6 mg/dL (0.8-1.5) H 01/08/20 06:00 Estimated GFR 42 ml/min 01/08/20 06:00 BUN/Creatinine Ratio 19 % 01/08/20 06:00 Glucose 161 mg/dL (75-100) H 01/08/20 06:00 POC Glucose 148 (70-105) H 01/08/20 05:42 Hemoglobin A1c 12.4 % (4-6) H 01/06/20 15:36 Lactic Acid 1.90 mmol/L (0.7-2.0) 01/07/20 05:06 Calcium 8.8 mg/dL (8.4-10.2) 01/08/20 06:00 Magnesium 2.20 mg/dL (1.7-2.3) 01/07/20 05:06 Total Bilirubin 0.60 mg/dL (0.1-1.2) 01/06/20 07:40 AST 23 units/L (5-40) 01/06/20 07:40 ALT 8 units/L (7-56) 01/06/20 07:40 Alkaline Phosphatase 50 units/L (35-129) 01/06/20 07:40 Total Creatine Kinase 99 units/L (55-170) 01/06/20 07:40 Troponin T 0.070 ng/mL (0.00-0.029) H 01/06/20 07:40 Total Protein 5.4 g/dL (6.3-8.2) L 01/06/20 07:40 Albumin 2.9 g/dL (3.9-5) L 01/06/20 07:40 Albumin/Globulin Ratio 1.2 % 01/06/20 07:40 Triglycerides 180 mg/dL (2-149) H 01/06/20 07:40 Cholesterol 95 mg/dL (50-199) 01/06/20 07:40 LDL Cholesterol Direct 45 mg/dL (50-130) L 01/06/20 07:40 HDL Cholesterol 38 mg/dL (40-59) L 01/06/20 07:40 Cholesterol/HDL Ratio 2.50 % 01/06/20 07:40 TSH 8.870 mlU/mL (0.270-4.200) H 01/06/20 07:40 Free T4 1.63 ng/dL (0.76-1.46) H 01/06/20 15:36 Urine Color Yellow (Yellow) 01/07/20 07:09 Urine Turbidity Clear (Clear) 01/07/20 07:09 Urine pH 5.0 (5.0-7.0) 01/07/20 07:09 Ur Specific [place] 1.015 (1.003-1.030) 01/07/20 07:09 Urine Protein <15 mg/dl mg/dL (Negative) 01/07/20 07:09 Urine Glucose (UA) >=500 mg/dL (Negative) 01/07/20 07:09 Urine Ketones Neg mg/dL (Negative) 01/07/20 07:09 Urine Blood Neg (Negative) 01/07/20 07:09 Urine Nitrite Neg (Negative) 01/07/20 07:09 Urine Bilirubin Neg (Negative) 01/07/20 07:09 Urine Urobilinogen < 2.0 mg/dL (<2.0) 01/07/20 07:09 Ur Leukocyte Esterase Neg (Negative) 01/07/20 07:09 Urine WBC (Auto) 1.0 /HPF (0.0-6.0) 01/07/20 07:09 Urine RBC (Auto) 3.0 /HPF (0.0-6.0) 01/07/20 07:09 U Epithel Cells (Auto) < 1.0 /HPF (0-13.0) 01/07/20 07:09 Urine Mucus Few /HPF 01/07/20 07:09 Blood Type O POSITIVE 01/06/20 07:40 Antibody Screen Negative 01/06/20 07:40 Body/IV: Voiding Method Urinal IV Catheter Type [Left INT / Saline Lock External Jugular] IV Catheter Type [External INT / Saline Lock Jugular] Active Medications - Current Medications Current Medications: Generic Name Dose Route Start Last Admin Trade Name Freq PRN Reason Stop Dose Admin Acetaminophen 650 mg 01/06/20 11:40 01/08/20 10:10 Tylenol PO 650 mg Q6H PRN Administration Non Cardiac Pain or Temp>100.5 Dextrose 50 ml 01/06/20 11:39 D50w (25gm) Syringe IV Q30MIN PRN Hypoglycemia Protocol Diphenhydramine HCl 25 mg 01/06/20 13:34 Benadryl IV Q6H PRN Itching Heparin Sodium (Porcine) 5,000 unit 01/07/20 22:00 01/08/20 10:11 Heparin SUB-Q 5,000 unit Q12HR PAT Administration Sodium Chloride 1,000 mls @ 125 mls/hr 01/06/20 12:00 Nacl 0.9% 1000 Ml IV DIRECT PAT Insulin Human Isoph/Insulin Regular 10 unit 01/07/20 17:00 01/08/20 08:36 Humulin 70/30 SUB-Q 10 unit BIDDIAB PAT Administration Insulin Human Lispro 0 unit 01/06/20 16:30 01/08/20 08:36 Humalog SUB-Q 4 unit ACHS PAT Administration Protocol Methylprednisolone Sodium Succinate 60 mg 01/06/20 14:00 01/08/20 05:36 Solu-Medrol IV 60 mg Q8HR PAT Administration Neomycin/Polymyxin/Bacitracin 2 applic 01/06/20 14:02 Triple Antibiotic TP BID PRN Rash Ondansetron HCl 4 mg 01/06/20 11:40 Zofran IV Q4H PRN Nausea And Vomiting Oxycodone/Acetaminophen 1 tab 01/07/20 14:22 01/08/20 05:36 Percocet 5/325 PO 1 tab Q6H PRN Administration Pain, Moderate (4-6) Pantoprazole Sodium 40 mg 01/06/20 12:00 01/08/20 10:11 Protonix PO 40 mg QDAY PAT Administration Polyethylene Glycol 17 gm 01/06/20 11:40 Miralax 3350 PO QDAY PRN Constipation
--- NOTE | 2020-01-08 11:05 | Progress Note ---
Assessment and Plan Impression * Acute on chronic renal failure * Syncope * Metabolic acidosis * Chronic atrial fibrillation * History of hypertension * Diabetes Recommendation * It appears that patient does have some degree of underlying chronic kidney disease. Baseline renal function however not known. His serum creatinine was 1.0 back in 2013 * His renal function seems to be have stabilized and he is also nonoliguric. * His urine shows a few red cells and trace dipstick protein. Follow-up results of vasculitis work-up. * Renal ultrasound report is also pending. * Patient is currently off IV fluids. * Avoid nephrotoxins * Monitor fluid status and electrolytes closely * Check urine for eosinophils as well Subjective Date of service: 01/08/20 Interval history: Patient is comfortable today. Denies any shortness of breath. Oxygen saturation 100% on room air Objective - Vital Signs Vital signs: Vital Signs - 12hr 01/07/20 01/07/20 01/07/20 23:08 23:10 23:20 Temperature Pulse Rate 68 66 72 Pulse Rate [ From Monitor] Respiratory 15 16 20 Rate Blood Pressure 141/62 141/62 141/62 O2 Sat by Pulse 99 99 99 Oximetry 01/07/20 01/07/20 01/07/20 23:27 23:30 23:40 Temperature 98.4 F Pulse Rate 63 65 Pulse Rate [ From Monitor] Respiratory 16 13 Rate Blood Pressure 141/62 141/62 O2 Sat by Pulse 100 99 Oximetry 01/07/20 01/08/20 01/08/20 23:50 00:00 00:10 Temperature Pulse Rate 65 66 64 Pulse Rate [ 66 From Monitor] Respiratory 13 15 13 Rate Blood Pressure 141/62 147/66 147/66 O2 Sat by Pulse 99 99 100 Oximetry 01/08/20 01/08/20 01/08/20 00:20 00:30 00:40 Temperature Pulse Rate 64 65 64 Pulse Rate [ From Monitor] Respiratory 14 13 15 Rate Blood Pressure 147/66 147/66 147/66 O2 Sat by Pulse 100 99 99 Oximetry 01/08/20 01/08/20 01/08/20 00:50 01:00 01:10 Temperature Pulse Rate 64 64 67 Pulse Rate [ From Monitor] Respiratory 12 12 15 Rate Blood Pressure 147/66 147/66 188/62 O2 Sat by Pulse 100 99 100 Oximetry 01/08/20 01/08/20 01/08/20 01:20 01:30 01:40 Temperature Pulse Rate 66 67 66 Pulse Rate [ From Monitor] Respiratory 14 15 12 Rate Blood Pressure 188/62 188/62 188/62 O2 Sat by Pulse 100 100 100 Oximetry 01/08/20 01/08/20 01/08/20 01:50 02:00 02:10 Temperature Pulse Rate 66 66 66 Pulse Rate [ From Monitor] Respiratory 11 L 12 13 Rate Blood Pressure 188/62 188/62 258/112 O2 Sat by Pulse 100 98 100 Oximetry 01/08/20 01/08/20 01/08/20 02:20 02:30 02:40 Temperature Pulse Rate 62 66 62 Pulse Rate [ From Monitor] Respiratory 13 14 12 Rate Blood Pressure 258/112 142/70 142/70 O2 Sat by Pulse 100 99 99 Oximetry 01/08/20 01/08/20 01/08/20 02:50 03:00 03:10 Temperature Pulse Rate 64 62 62 Pulse Rate [ From Monitor] Respiratory 13 13 14 Rate Blood Pressure 142/70 141/61 141/61 O2 Sat by Pulse 99 98 99 Oximetry 01/08/20 01/08/20 01/08/20 03:20 03:30 03:40 Temperature Pulse Rate 62 65 64 Pulse Rate [ From Monitor] Respiratory 14 15 14 Rate Blood Pressure 141/61 141/61 141/61 O2 Sat by Pulse 99 99 99 Oximetry 01/08/20 01/08/20 01/08/20 03:48 03:50 04:00 Temperature 98.8 F Pulse Rate 59 L 59 L Pulse Rate [ 68 From Monitor] Respiratory 12 14 Rate Blood Pressure 141/61 131/57 O2 Sat by Pulse 99 99 Oximetry 01/08/20 01/08/20 01/08/20 04:10 04:20 04:30 Temperature Pulse Rate 61 61 69 Pulse Rate [ From Monitor] Respiratory 13 14 14 Rate Blood Pressure 131/57 131/57 131/57 O2 Sat by Pulse 98 99 99 Oximetry 01/08/20 01/08/20 01/08/20 04:40 04:50 05:00 Temperature Pulse Rate 68 71 75 Pulse Rate [ From Monitor] Respiratory 13 17 16 Rate Blood Pressure 131/57 131/57 172/79 O2 Sat by Pulse 99 99 99 Oximetry 01/08/20 01/08/20 01/08/20 05:10 05:20 05:30 Temperature Pulse Rate 85 82 92 H Pulse Rate [ From Monitor] Respiratory 22 21 22 Rate Blood Pressure 172/79 172/79 172/79 O2 Sat by Pulse 97 100 99 Oximetry 01/08/20 01/08/20 01/08/20 05:40 05:50 06:00 Temperature Pulse Rate 90 88 84 Pulse Rate [ From Monitor] Respiratory 18 26 H 27 H Rate Blood Pressure 172/79 172/79 172/79 O2 Sat by Pulse 99 99 98 Oximetry 01/08/20 01/08/20 01/08/20 06:10 06:20 06:30 Temperature Pulse Rate 89 79 79 Pulse Rate [ From Monitor] Respiratory 22 15 18 Rate Blood Pressure 172/79 197/115 197/115 O2 Sat by Pulse 99 98 99 Oximetry 01/08/20 01/08/20 01/08/20 06:40 06:50 07:00 Temperature Pulse Rate 99 H 83 72 Pulse Rate [ From Monitor] Respiratory 25 H 17 15 Rate Blood Pressure 197/115 197/115 197/115 O2 Sat by Pulse 98 99 99 Oximetry 01/08/20 01/08/20 01/08/20 07:10 07:20 07:30 Temperature Pulse Rate 70 71 69 Pulse Rate [ From Monitor] Respiratory 10 L 10 L 12 Rate Blood Pressure 197/115 197/115 197/115 O2 Sat by Pulse 99 100 98 Oximetry 01/08/20 01/08/20 01/08/20 07:40 07:50 08:00 Temperature Pulse Rate 70 66 61 Pulse Rate [ From Monitor] Respiratory 15 11 L 10 L Rate Blood Pressure 197/115 197/115 130/62 O2 Sat by Pulse 93 97 99 Oximetry 01/08/20 01/08/20 01/08/20 08:10 08:20 08:30 Temperature Pulse Rate 79 78 77 Pulse Rate [ From Monitor] Respiratory 21 15 21 Rate Blood Pressure 130/62 130/62 130/62 O2 Sat by Pulse 99 98 100 Oximetry 01/08/20 01/08/20 01/08/20 08:40 08:50 09:00 Temperature Pulse Rate 73 75 74 Pulse Rate [ From Monitor] Respiratory 19 23 11 L Rate Blood Pressure 130/62 130/62 130/62 O2 Sat by Pulse 98 97 98 Oximetry 01/08/20 01/08/20 09:10 09:20 Temperature Pulse Rate 69 67 Pulse Rate [ From Monitor] Respiratory 11 L 10 L Rate Blood Pressure 130/62 130/62 O2 Sat by Pulse 98 100 Oximetry - General Appearance General appearance: well-developed, well-nourished, appears stated age EENT: PERRL, mucous membranes moist Neck: no JVD, no thyromegaly, no carotid bruit, supple Respiratory: Present: Clear to Ascultation Cardiology: regular, normal heart rate, S1S2, no murmurs Gastrointestinal: normal, normoactive bowel sounds Integumentary: other (Blisters noted in his skin) - Lab 01/08/20 06:00 01/08/20 06:00 Most recent lab results Calcium 8.8 mg/dL (8.4-10.2) 01/08/20 06:00 Magnesium 2.20 mg/dL (1.7-2.3) 01/07/20 05:06 Medications & Allergies - Medications Allergies/Adverse Reactions: Allergies acetaminophen [From [place]] Allergy (Verified 01/06/20 13:32) Unknown ethambutol HCl [From Myambutol] Allergy (Verified 01/06/20 13:32) Unknown hydralazine Allergy (Verified 01/06/20 13:32) Unknown hydrocodone bitartrate [From [place]] Allergy (Verified 01/06/20 13:32) Unknown levofloxacin [From Levaquin] Allergy (Verified 01/06/20 13:32) Swelling naproxen Allergy (Verified 01/06/20 13:32) Unknown rifampin [From Rifadin] Allergy (Verified 01/06/20 13:32) Unknown tramadol HCl [From Ultram] Allergy (Verified 01/06/20 13:32) Unknown allpurinol Allergy (Uncoded 07/16/13 02:36) Unknown sulindac Allergy (Uncoded 07/16/13 02:36) Unknown Home Medications: Home Medications Medication Instructions Recorded Confirmed Last Taken Type Atorvastatin (Nf) [Lipitor] 20 mg PO QHS 07/16/13 01/06/20 01/15/14 History lisinopriL [Zestril TAB] 20 mg PO QDAY 07/16/13 01/06/20 01/15/14 History Colchicine 0.6 mg PO BID 01/06/20 01/06/20 Unknown History Dabigatran Etexilate Mesylate 150 mg PO DAILY 01/06/20 01/06/20 Unknown History [Pradaxa] predniSONE 2.5 mg PO Q48H 01/06/20 01/06/20 Unknown History Active Medications: Generic Name Dose Route Start Last Admin Trade Name Freq PRN Reason Stop Dose Admin Acetaminophen 650 mg 01/06/20 11:40 01/08/20 10:10 Tylenol PO 650 mg Q6H PRN Administration Non Cardiac Pain or Temp>100.5 Dextrose 50 ml 01/06/20 11:39 D50w (25gm) Syringe IV Q30MIN PRN Hypoglycemia Protocol Diphenhydramine HCl 25 mg 01/06/20 13:34 Benadryl IV Q6H PRN Itching Heparin Sodium (Porcine) 5,000 unit 01/07/20 22:00 01/08/20 10:11 Heparin SUB-Q 5,000 unit Q12HR PAT Administration Sodium Chloride 1,000 mls @ 125 mls/hr 01/06/20 12:00 Nacl 0.9% 1000 Ml IV DIRECT PAT Insulin Human Isoph/Insulin Regular 10 unit 01/07/20 17:00 01/08/20 08:36 Humulin 70/30 SUB-Q 10 unit BIDDIAB PAT Administration Insulin Human Lispro 0 unit 01/06/20 16:30 01/08/20 08:36 Humalog SUB-Q 4 unit ACHS PAT Administration Protocol Methylprednisolone Sodium Succinate 60 mg 01/06/20 14:00 01/08/20 05:36 Solu-Medrol IV 60 mg Q8HR PAT Administration Neomycin/Polymyxin/Bacitracin 2 applic 01/06/20 14:02 Triple Antibiotic TP BID PRN Rash Ondansetron HCl 4 mg 01/06/20 11:40 Zofran IV Q4H PRN Nausea And Vomiting Oxycodone/Acetaminophen 1 tab 01/07/20 14:22 01/08/20 05:36 Percocet 5/325 PO 1 tab Q6H PRN Administration Pain, Moderate (4-6) Pantoprazole Sodium 40 mg 01/06/20 12:00 01/08/20 10:11 Protonix PO 40 mg QDAY PAT Administration Polyethylene Glycol 17 gm 01/06/20 11:40 Miralax 3350 PO QDAY PRN Constipation
[2020-01-09] MEDS: methylPREDNISolone Sod Succinate 125 MG/2 ML INJ IV SCH ×3 (06:49→22:14)
[2020-01-09] MEDS: oxyCODONE /ACETAMINOPHEN 5-325MG TAB PO PRN ×2 (06:50→22:10)
[2020-01-09] MEDS: INSULIN LISPRO 100 UNIT/ML SUB-Q SCH ×4 (07:36→22:39)
--- NOTE | 2020-01-09 08:37 | Ultrasound Report ---
RENAL ULTRASOUND HISTORY: ARF COMPARISON: None. TECHNIQUE: Multiple real-time ultrasonographic grayscale images were obtained of the kidneys and urin víctor bladder. FINDINGS: Right kidney: Moderate increased echogenicity and cortical thinning. No hydronephrosis. Several benig n cysts with the largest measuring 1.3 cm in the lower pole. Kidney measures 10.1 cm. Left kidney: Moderate increased echogenicity and cortical thinning. No hydronephrosis. At least 2 vernon ign cysts measuring less than 1 cm. Kidney measures 9.8 cm. Urinary bladder: No significant abnormality. Additional findings: None. IMPRESSION: 1. Bilateral medical renal disease. 2. No hydronephrosis. 3. Bilateral benign cysts. Signer Name: Josr Duran MD Signed: 01/09/2020 8:32 AM Workstation Name: [id number]
--- NOTE | 2020-01-09 08:55 | Progress Note ---
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 IV fluids, pain meds and supportive care Consult ID, follow cultures --Syncope; probably secondary to orthostatic hypotension Fall precautions, syncope work-up, PT OT Discharge planning --Acute renal failure; suspect ATN Gentle hydration, monitor renal function, avoid nephrotoxins Nephrology following --Severe protein calorie malnutrition/hypoalbuminemia Nutrition supplements, supportive care, nutrition consult --History of A. fib; rate controlled Continue beta-blockers, chronic anticoagulation On Pradaxa, not sure with the patient is compliant Check with family --Type 2 diabetes mellitus; moderate control Accu-Chek sliding scale coverage ADA diet and insulin A1c more than 12, diabetic education --History of gout; hold colchicine Allergy to allopurinol, allopurinol held --Physical therapy, Occupational Therapy --Discharge planning per case management --Full CODE STATUS --DVT prophylaxis: Heparin renal dose DC planning per case management Monitor closely and adjust management as needed Discussed with nephrology Critical care time 32 minutes History Interval history: I have seen the patient and examined at the bedside Patient's chart, medications, other documentation reviewed Patient feels slightly better, afebrile Vital signs reviewed Alert awake oriented x3 Hospitalist Physical - Constitutional Vitals: Temp Pulse Resp BP Pulse Ox 97.5 F L 84 11 L 119/58 99 01/09/20 06:47 01/09/20 06:00 01/09/20 06:00 01/09/20 06:00 01/09/20 06:00 General appearance: Present: no acute distress, well-nourished - EENT Eyes: Present: PERRL, EOM intact - Neck Neck: Present: supple, normal ROM - Respiratory Respiratory effort: normal Respiratory: bilateral: diminished, negative: rales, rhonchi, wheezing - Cardiovascular Rhythm: regular Heart Sounds: Present: S1 & S2 - Extremities Extremities: no ischemia, No edema - Abdominal General gastrointestinal: soft, non-tender, non-distended, normal bowel sounds - Integumentary Integumentary: Present: clear, warm, rash (Blisters) - Psychiatric Psychiatric: appropriate mood/affect - Neurologic Neurologic: moves all extremities Results - Labs CBC & Chem 7: 03/16/20 09:34 01/09/20 09:34 Labs: Laboratory Last Values WBC 16.8 K/mm3 (4.5-11.0) H 01/08/20 06:00 RBC 4.50 M/mm3 (3.65-5.03) 01/08/20 06:00 Hgb 9.8 gm/dl (11.8-15.2) L 01/08/20 06:00 Hct 30.2 % (35.5-45.6) L 01/08/20 06:00 MCV 67 fl (84-94) L 01/08/20 06:00 MCH 22 pg (28-32) L 01/08/20 06:00 MCHC 32 % (32-34) 01/08/20 06:00 RDW 19.4 % (13.2-15.2) H 01/08/20 06:00 Plt Count 308 K/mm3 (140-440) 01/08/20 06:00 Add Manual Diff Complete 01/06/20 07:40 Total Counted 100 01/06/20 07:40 Seg Neuts % (Manual) 79.0 % (40.0-70.0) H 01/06/20 07:40 Band Neutrophils % 13.0 % 01/06/20 07:40 Lymphocytes % (Manual) 2.0 % (13.4-35.0) L 01/06/20 07:40 Reactive Lymphs % (Man) 2.0 % 01/06/20 07:40 Monocytes % (Manual) 3.0 % (0.0-7.3) 01/06/20 07:40 Eosinophils % (Manual) 1.0 % (0.0-4.3) 01/06/20 07:40 Basophils % (Manual) 0 % (0.0-1.8) 01/06/20 07:40 Metamyelocytes % 0 % 01/06/20 07:40 Myelocytes % 0 % 01/06/20 07:40 Promyelocytes % 0 % 01/06/20 07:40 Blast Cells % 0 % 01/06/20 07:40 Nucleated RBC % Not Reportable 01/06/20 07:40 Seg Neutrophils # Man 11.8 K/mm3 (1.8-7.7) H 01/06/20 07:40 Band Neutrophils # 1.9 K/mm3 01/06/20 07:40 Lymphocytes # (Manual) 0.3 K/mm3 (1.2-5.4) L 01/06/20 07:40 Abs React Lymphs (Man) 0.3 K/mm3 01/06/20 07:40 Monocytes # (Manual) 0.4 K/mm3 (0.0-0.8) 01/06/20 07:40 Eosinophils # (Manual) 0.1 K/mm3 (0.0-0.4) 01/06/20 07:40 Basophils # (Manual) 0.0 K/mm3 (0.0-0.1) 01/06/20 07:40 Metamyelocytes # 0.0 K/mm3 01/06/20 07:40 Myelocytes # 0.0 K/mm3 01/06/20 07:40 Promyelocytes # 0.0 K/mm3 01/06/20 07:40 Blast Cells # 0.0 K/mm3 01/06/20 07:40 WBC Morphology Not Reportable 01/06/20 07:40 Hypersegmented Neuts Not Reportable 01/06/20 07:40 Hyposegmented Neuts Not Reportable 01/06/20 07:40 Hypogranular Neuts Not Reportable 01/06/20 07:40 Smudge Cells Not Reportable 01/06/20 07:40 Toxic Granulation Not Reportable 01/06/20 07:40 Toxic Vacuolation Not Reportable 01/06/20 07:40 Dohle Bodies Not Reportable 01/06/20 07:40 Pelger-Huet Anomaly Not Reportable 01/06/20 07:40 David Rods Not Reportable 01/06/20 07:40 Platelet Estimate Consistent w auto 01/06/20 07:40 Clumped Platelets Not Reportable 01/06/20 07:40 Plt Clumps, EDTA Not Reportable 01/06/20 07:40 Large Platelets Not Reportable 01/06/20 07:40 Giant Platelets Not Reportable 01/06/20 07:40 Platelet Satelliting Not Reportable 01/06/20 07:40 Plt Morphology Comment Not Reportable 01/06/20 07:40 RBC Morphology Not Reportable 01/06/20 07:40 Dimorphic RBCs Not Reportable 01/06/20 07:40 Polychromasia Few 01/06/20 07:40 Hypochromasia 2+ 01/06/20 07:40 Poikilocytosis Not Reportable 01/06/20 07:40 Anisocytosis Not Reportable 01/06/20 07:40 Microcytosis 1+ 01/06/20 07:40 Macrocytosis Not Reportable 01/06/20 07:40 Spherocytes Not Reportable 01/06/20 07:40 Pappenheimer Bodies Not Reportable 01/06/20 07:40 Sickle Cells Not Reportable 01/06/20 07:40 Target Cells Few 01/06/20 07:40 Tear Drop Cells Few 01/06/20 07:40 Ovalocytes Not Reportable 01/06/20 07:40 Helmet Cells Not Reportable 01/06/20 07:40 Mittal-Belfry Bodies Not Reportable 01/06/20 07:40 [place] Rings Not Reportable 01/06/20 07:40 [place] Cells Not Reportable 01/06/20 07:40 Bite Cells Not Reportable 01/06/20 07:40 Crenated Cell Not Reportable 01/06/20 07:40 Elliptocytes Not Reportable 01/06/20 07:40 Acanthocytes (Spur) Not Reportable 01/06/20 07:40 Rouleaux Not Reportable 01/06/20 07:40 Hemoglobin C Crystals Not Reportable 01/06/20 07:40 Schistocytes Few 01/06/20 07:40 Malaria parasites Not Reportable 01/06/20 07:40 Cornel Bodies Not Reportable 01/06/20 07:40 Hem Pathologist Commnt No 01/06/20 07:40 PT 24.8 Sec. (12.2-14.9) H 01/06/20 07:40 INR 2.19 (0.87-1.13) H 01/06/20 07:40 APTT 74.0 Sec. (24.2-36.6) H* 01/06/20 07:40 Sodium 135 mmol/L (137-145) L 01/08/20 06:00 Potassium 4.2 mmol/L (3.6-5.0) 01/08/20 06:00 Chloride 102.0 mmol/L (98-107) 01/08/20 06:00 Carbon Dioxide 12 mmol/L (22-30) L 01/08/20 06:00 Anion Gap 25 mmol/L 01/08/20 06:00 BUN 30 mg/dL (9-20) H 01/08/20 06:00 Creatinine 1.6 mg/dL (0.8-1.5) H 01/08/20 06:00 Estimated GFR 42 ml/min 01/08/20 06:00 BUN/Creatinine Ratio 19 % 01/08/20 06:00 Glucose 161 mg/dL (75-100) H 01/08/20 06:00 POC Glucose 106 (70-105) H 01/08/20 22:07 Hemoglobin A1c 12.4 % (4-6) H 01/06/20 15:36 Lactic Acid 1.90 mmol/L (0.7-2.0) 01/07/20 05:06 Calcium 8.8 mg/dL (8.4-10.2) 01/08/20 06:00 Magnesium 2.20 mg/dL (1.7-2.3) 01/07/20 05:06 Total Bilirubin 0.60 mg/dL (0.1-1.2) 01/06/20 07:40 AST 23 units/L (5-40) 01/06/20 07:40 ALT 8 units/L (7-56) 01/06/20 07:40 Alkaline Phosphatase 50 units/L (35-129) 01/06/20 07:40 Total Creatine Kinase 99 units/L (55-170) 01/06/20 07:40 Troponin T 0.070 ng/mL (0.00-0.029) H 01/06/20 07:40 Total Protein 5.4 g/dL (6.3-8.2) L 01/06/20 07:40 Albumin 2.9 g/dL (3.9-5) L 01/06/20 07:40 Albumin/Globulin Ratio 1.2 % 01/06/20 07:40 Triglycerides 180 mg/dL (2-149) H 01/06/20 07:40 Cholesterol 95 mg/dL (50-199) 01/06/20 07:40 LDL Cholesterol Direct 45 mg/dL (50-130) L 01/06/20 07:40 HDL Cholesterol 38 mg/dL (40-59) L 01/06/20 07:40 Cholesterol/HDL Ratio 2.50 % 01/06/20 07:40 TSH 8.870 mlU/mL (0.270-4.200) H 01/06/20 07:40 Free T4 1.63 ng/dL (0.76-1.46) H 01/06/20 15:36 Urine Color Yellow (Yellow) 01/07/20 07:09 Urine Turbidity Clear (Clear) 01/07/20 07:09 Urine pH 5.0 (5.0-7.0) 01/07/20 07:09 Ur Specific [place] 1.015 (1.003-1.030) 01/07/20 07:09 Urine Protein <15 mg/dl mg/dL (Negative) 01/07/20 07:09 Urine Glucose (UA) >=500 mg/dL (Negative) 01/07/20 07:09 Urine Ketones Neg mg/dL (Negative) 01/07/20 07:09 Urine Blood Neg (Negative) 01/07/20 07:09 Urine Nitrite Neg (Negative) 01/07/20 07:09 Urine Bilirubin Neg (Negative) 01/07/20 07:09 Urine Urobilinogen < 2.0 mg/dL (<2.0) 01/07/20 07:09 Ur Leukocyte Esterase Neg (Negative) 01/07/20 07:09 Urine WBC (Auto) 1.0 /HPF (0.0-6.0) 01/07/20 07:09 Urine RBC (Auto) 3.0 /HPF (0.0-6.0) 01/07/20 07:09 U Epithel Cells (Auto) < 1.0 /HPF (0-13.0) 01/07/20 07:09 Urine Mucus Few /HPF 01/07/20 07:09 Blood Type O POSITIVE 01/06/20 07:40 Antibody Screen Negative 01/06/20 07:40 Boyd/IV: Voiding Method Urinal IV Catheter Type [Left INT / Saline Lock External Jugular] IV Catheter Type [External INT / Saline Lock Jugular] Active Medications - Current Medications Current Medications: Generic Name Dose Route Start Last Admin Trade Name Freq PRN Reason Stop Dose Admin Acetaminophen 650 mg 01/06/20 11:40 01/08/20 10:10 Tylenol PO 650 mg Q6H PRN Administration Non Cardiac Pain or Temp>100.5 Dextrose 50 ml 01/06/20 11:39 D50w (25gm) Syringe IV Q30MIN PRN Hypoglycemia Protocol Diphenhydramine HCl 25 mg 01/06/20 13:34 Benadryl IV Q6H PRN Itching Heparin Sodium (Porcine) 5,000 unit 01/07/20 22:00 01/08/20 23:13 Heparin SUB-Q 5,000 unit Q12HR PAT Administration Sodium Chloride 1,000 mls @ 125 mls/hr 01/06/20 12:00 Nacl 0.9% 1000 Ml IV DIRECT PAT Insulin Human Isoph/Insulin Regular 10 unit 01/07/20 17:00 01/08/20 17:24 Humulin 70/30 SUB-Q 10 unit BIDDIAB PAT Administration Insulin Human Lispro 0 unit 01/06/20 16:30 01/08/20 22:30 Humalog SUB-Q Not Given ACHS PAT Protocol Methylprednisolone Sodium Succinate 60 mg 01/06/20 14:00 01/09/20 06:49 Solu-Medrol IV 60 mg Q8HR PAT Administration Neomycin/Polymyxin/Bacitracin 2 applic 01/06/20 14:02 Triple Antibiotic TP BID PRN Rash Ondansetron HCl 4 mg 01/06/20 11:40 Zofran IV Q4H PRN Nausea And Vomiting Oxycodone/Acetaminophen 1 tab 01/07/20 14:22 01/09/20 06:50 Percocet 5/325 PO 1 tab Q6H PRN Administration Pain, Moderate (4-6) Pantoprazole Sodium 40 mg 01/06/20 12:00 01/08/20 10:11 Protonix PO 40 mg QDAY PAT Administration Polyethylene Glycol 17 gm 01/06/20 11:40 Miralax 3350 PO QDAY PRN Constipation
[2020-01-09 10:45] LABS: Hematocrit 28.9 % (35.5-45.6); Hemoglobin 9.5 gm/dl (11.8-15.2); Lymphocytes # (Auto) 1.1 K/mm3 (1.2-5.4); Lymphocytes % (Auto) 7.1 % (13.4-35.0); Mean Corpuscular HGB Conc 33 % (32-34); Monocytes # (Auto) 0.6 K/mm3 (0.0-0.8); Monocytes % (Auto) 3.6 % (0.0-7.3); Platelet Count 320 K/mm3 (140-440); Red Blood Count 4.32 M/mm3 (3.65-5.03); Red Cell Distribution Width 19.2 % (13.2-15.2)
[2020-01-09 10:46] LABS: Mean Corpuscular Volume 67 fl (84-94)
[2020-01-09 11:09] LABS: Calcium 8.5 mg/dL (8.4-10.2)
[2020-01-09] MEDS: HEPARIN 5,000 UNIT/1 ML VIAL SUB-Q SCH ×2 (11:35→22:13)
[2020-01-09] MEDS: INSULIN NPH/REGULAR 70/30 INJ SUB-Q SCH ×2 (11:38→18:46)
[2020-01-09] MEDS: PANTOPRAZOLE 40 MG TAB PO SCH (11:38)
--- NOTE | 2020-01-09 15:43 | Progress Note ---
Assessment and Plan Impression * Nonoliguric acute kidney injury secondary to prerenal azotemia on chronic kidney disease --Renal ultrasound: unremarkable w/ exception of bilateral renal cysts * Drug rash * Syncope * Metabolic acidosis * Chronic atrial fibrillation * Hypertension * Type II diabetes mellitus Recommendation * Renal function is stable; continue current management * Continue IVF * Start po bicarbonate * Await pending vasculitis work-up * Urine eos pending * Avoid nephrotoxins * Monitor fluid status and electrolytes closely Subjective Date of service: 01/09/20 Interval history: No acute events overnight. Objective - Vital Signs Vital signs: Vital Signs - 12hr 01/09/20 01/09/20 01/09/20 04:00 04:10 05:00 Temperature 97.5 F L Pulse Rate 77 70 Pulse Rate [ 75 From Monitor] Respiratory 13 14 Rate Blood Pressure 119/58 119/58 O2 Sat by Pulse 99 99 Oximetry 01/09/20 01/09/20 01/09/20 06:00 06:47 08:00 Temperature 97.5 F L 97.6 F Pulse Rate 84 Pulse Rate [ From Monitor] Respiratory 11 L Rate Blood Pressure 119/58 O2 Sat by Pulse 99 Oximetry - General Appearance General appearance: well-developed, well-nourished EENT: ATNC Respiratory: Present: Clear to Ascultation Cardiology: regular, S1S2 Gastrointestinal: normal, no tenderness, no distended Integumentary: rash (fluid filled bullae to trunk, arms) Neurologic: no focal deficit Musculoskeletal: other (no edema) Psychiatric: cooperative - Lab 01/09/20 09:34 01/09/20 09:34 Most recent lab results Calcium 8.5 mg/dL (8.4-10.2) 01/09/20 09:34 Magnesium 2.20 mg/dL (1.7-2.3) 01/07/20 05:06 Medications & Allergies - Medications Allergies/Adverse Reactions: Allergies acetaminophen [From [place]] Allergy (Verified 01/06/20 13:32) Unknown ethambutol HCl [From Myambutol] Allergy (Verified 01/06/20 13:32) Unknown hydralazine Allergy (Verified 01/06/20 13:32) Unknown hydrocodone bitartrate [From [place]] Allergy (Verified 01/06/20 13:32) Unknown levofloxacin [From Levaquin] Allergy (Verified 01/06/20 13:32) Swelling naproxen Allergy (Verified 01/06/20 13:32) Unknown rifampin [From Rifadin] Allergy (Verified 01/06/20 13:32) Unknown tramadol HCl [From Ultram] Allergy (Verified 01/06/20 13:32) Unknown allpurinol Allergy (Uncoded 07/16/13 02:36) Unknown sulindac Allergy (Uncoded 07/16/13 02:36) Unknown Home Medications: Home Medications Medication Instructions Recorded Confirmed Last Taken Type Atorvastatin (Nf) [Lipitor] 20 mg PO QHS 07/16/13 01/06/20 01/15/14 History lisinopriL [Zestril TAB] 20 mg PO QDAY 07/16/13 01/06/20 01/15/14 History Colchicine 0.6 mg PO BID 01/06/20 01/06/20 Unknown History Dabigatran Etexilate Mesylate 150 mg PO DAILY 01/06/20 01/06/20 Unknown History [Pradaxa] predniSONE 2.5 mg PO Q48H 01/06/20 01/06/20 Unknown History Active Medications: Generic Name Dose Route Start Last Admin Trade Name Freq PRN Reason Stop Dose Admin Acetaminophen 650 mg 01/06/20 11:40 01/08/20 10:10 Tylenol PO 650 mg Q6H PRN Administration Non Cardiac Pain or Temp>100.5 Dextrose 50 ml 01/06/20 11:39 D50w (25gm) Syringe IV Q30MIN PRN Hypoglycemia Protocol Diphenhydramine HCl 25 mg 01/06/20 13:34 Benadryl IV Q6H PRN Itching Heparin Sodium (Porcine) 5,000 unit 01/07/20 22:00 01/09/20 11:35 Heparin SUB-Q 5,000 unit Q12HR PAT Administration Sodium Chloride 1,000 mls @ 125 mls/hr 01/06/20 12:00 Nacl 0.9% 1000 Ml IV DIRECT PAT Ampicillin Sodium/Sulbactam Sodium 1.5 gm in 50 mls @ 100 mls/hr 01/09/20 11:00 Unasyn/Ns 1.5 Gm/50 Ml IV Q8H PAT Protocol Insulin Human Isoph/Insulin Regular 10 unit 01/07/20 17:00 01/09/20 11:38 Humulin 70/30 SUB-Q 10 unit BIDDIAB PAT Administration Insulin Human Lispro 0 unit 01/06/20 16:30 01/09/20 11:37 Humalog SUB-Q 1 unit ACHS PAT Administration Protocol Methylprednisolone Sodium Succinate 60 mg 01/06/20 14:00 01/09/20 06:49 Solu-Medrol IV 60 mg Q8HR PAT Administration Neomycin/Polymyxin/Bacitracin 2 applic 01/06/20 14:02 Triple Antibiotic TP BID PRN Rash Ondansetron HCl 4 mg 01/06/20 11:40 Zofran IV Q4H PRN Nausea And Vomiting Oxycodone/Acetaminophen 1 tab 01/07/20 14:22 01/09/20 06:50 Percocet 5/325 PO 1 tab Q6H PRN Administration Pain, Moderate (4-6) Pantoprazole Sodium 40 mg 01/06/20 12:00 01/09/20 11:38 Protonix PO 40 mg QDAY PAT Administration Polyethylene Glycol 17 gm 01/06/20 11:40 Miralax 3350 PO QDAY PRN Constipation
[2020-01-09] MEDS: AMPICILLIN/SULBACTA 1.5GM/50ML 1.5 GM/50 ML BAG IV SCH ×2 (15:55→22:11)
[2020-01-09] MEDS: SODIUM BICARBONATE 650 MG TAB PO SCH (22:12)
[2020-01-09] MEDS: SODIUM CHLORIDE 0.9% 1000 ML 1,000 ML IV SCH (23:24)
[2020-01-10] MEDS: AMPICILLIN/SULBACTA 1.5GM/50ML 1.5 GM/50 ML BAG IV SCH ×2 (03:53→12:00)
[2020-01-10 04:35] LABS: Creatinine,Urine 55.5 mg/dL (0.1-20.0); Fractional Sodium Excretion 0.2
[2020-01-10] MEDS: SODIUM CHLORIDE 0.9% 1000 ML 1,000 ML IV SCH ×2 (06:00→14:41)
[2020-01-10] MEDS: methylPREDNISolone Sod Succinate 125 MG/2 ML INJ IV SCH ×3 (06:01→23:05)
[2020-01-10] MEDS: INSULIN NPH/REGULAR 70/30 INJ SUB-Q SCH ×2 (08:15→16:24)
--- NOTE | 2020-01-10 08:20 | Progress Note ---
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 IV fluids, pain meds and supportive care Added Unasyn , requested wound cultures consulted ID. --Syncope; probably secondary to orthostatic hypotension Fall precautions, syncope work-up, PT OT --Acute renal failure; suspect ATN Gentle hydration, monitor renal function, avoid nephrotoxins Nephrology following --Severe protein calorie malnutrition/hypoalbuminemia Nutrition supplements, supportive care, nutrition consult --History of A. fib; rate controlled Continue beta-blockers, chronic anticoagulation On Pradaxa, not sure with the patient is compliant Check with family --Type 2 diabetes mellitus; moderate control Accu-Chek sliding scale coverage ADA diet and insulin A1c more than 12, diabetic education --History of gout; hold colchicine Allergy to allopurinol, allopurinol held --Physical therapy, Occupational Therapy --Discharge planning per case management --Full CODE STATUS --DVT prophylaxis: Heparin renal dose Monitor closely and adjust management as needed Plan of care discussed with the patient and his nurse History Interval history: Patient seen and examined in his room this morning at bedside Patient's chart, medications, lab tests reviewed Patient feels slightly better has blisters all over the body Hospitalist Physical - Constitutional Vitals: Temp Pulse Resp BP Pulse Ox 97.5 F L 84 20 112/61 98 01/10/20 03:06 01/10/20 03:06 01/10/20 03:06 01/10/20 03:06 01/10/20 03:06 General appearance: Present: no acute distress, well-nourished - EENT Eyes: Present: PERRL, EOM intact - Neck Neck: Present: supple, normal ROM - Respiratory Respiratory effort: normal Respiratory: bilateral: diminished, negative: rales, rhonchi, wheezing - Cardiovascular Rhythm: regular Heart Sounds: Present: S1 & S2 - Extremities Extremities: no ischemia, No edema - Abdominal General gastrointestinal: soft, non-tender, non-distended, normal bowel sounds - Integumentary Integumentary: Present: clear, warm - Psychiatric Psychiatric: appropriate mood/affect, cooperative - Neurologic Neurologic: CNII-XII intact, moves all extremities Results - Labs CBC & Chem 7: 01/10/20 16:48 01/10/20 16:48 Labs: Laboratory Last Values WBC 15.8 K/mm3 (4.5-11.0) H 01/09/20 09:34 RBC 4.32 M/mm3 (3.65-5.03) 01/09/20 09:34 Hgb 9.5 gm/dl (11.8-15.2) L 01/09/20 09:34 Hct 28.9 % (35.5-45.6) L 01/09/20 09:34 MCV 67 fl (84-94) L 01/09/20 09:34 MCH 22 pg (28-32) L 01/09/20 09:34 MCHC 33 % (32-34) 01/09/20 09:34 RDW 19.2 % (13.2-15.2) H 01/09/20 09:34 Plt Count 320 K/mm3 (140-440) 01/09/20 09:34 Lymph % (Auto) 7.1 % (13.4-35.0) L 01/09/20 09:34 [place] % (Auto) 3.6 % (0.0-7.3) 01/09/20 09:34 Eos % (Auto) 0.0 % (0.0-4.3) 01/09/20 09:34 Baso % (Auto) 0.0 % (0.0-1.8) 01/09/20 09:34 Lymph # 1.1 K/mm3 (1.2-5.4) L 01/09/20 09:34 [place] # 0.6 K/mm3 (0.0-0.8) 01/09/20 09:34 Eos # 0.0 K/mm3 (0.0-0.4) 01/09/20 09:34 Baso # 0.0 K/mm3 (0.0-0.1) 01/09/20 09:34 Add Manual Diff Complete 01/06/20 07:40 Total Counted 100 01/06/20 07:40 Seg Neutrophils % 89.3 % (40.0-70.0) H 01/09/20 09:34 Seg Neuts % (Manual) 79.0 % (40.0-70.0) H 01/06/20 07:40 Band Neutrophils % 13.0 % 01/06/20 07:40 Lymphocytes % (Manual) 2.0 % (13.4-35.0) L 01/06/20 07:40 Reactive Lymphs % (Man) 2.0 % 01/06/20 07:40 Monocytes % (Manual) 3.0 % (0.0-7.3) 01/06/20 07:40 Eosinophils % (Manual) 1.0 % (0.0-4.3) 01/06/20 07:40 Basophils % (Manual) 0 % (0.0-1.8) 01/06/20 07:40 Metamyelocytes % 0 % 01/06/20 07:40 Myelocytes % 0 % 01/06/20 07:40 Promyelocytes % 0 % 01/06/20 07:40 Blast Cells % 0 % 01/06/20 07:40 Nucleated RBC % Not Reportable 01/06/20 07:40 Seg Neutrophils # 14.1 K/mm3 (1.8-7.7) H 01/09/20 09:34 Seg Neutrophils # Man 11.8 K/mm3 (1.8-7.7) H 01/06/20 07:40 Band Neutrophils # 1.9 K/mm3 01/06/20 07:40 Lymphocytes # (Manual) 0.3 K/mm3 (1.2-5.4) L 01/06/20 07:40 Abs React Lymphs (Man) 0.3 K/mm3 01/06/20 07:40 Monocytes # (Manual) 0.4 K/mm3 (0.0-0.8) 01/06/20 07:40 Eosinophils # (Manual) 0.1 K/mm3 (0.0-0.4) 01/06/20 07:40 Basophils # (Manual) 0.0 K/mm3 (0.0-0.1) 01/06/20 07:40 Metamyelocytes # 0.0 K/mm3 01/06/20 07:40 Myelocytes # 0.0 K/mm3 01/06/20 07:40 Promyelocytes # 0.0 K/mm3 01/06/20 07:40 Blast Cells # 0.0 K/mm3 01/06/20 07:40 WBC Morphology Not Reportable 01/06/20 07:40 Hypersegmented Neuts Not Reportable 01/06/20 07:40 Hyposegmented Neuts Not Reportable 01/06/20 07:40 Hypogranular Neuts Not Reportable 01/06/20 07:40 Smudge Cells Not Reportable 01/06/20 07:40 Toxic Granulation Not Reportable 01/06/20 07:40 Toxic Vacuolation Not Reportable 01/06/20 07:40 Dohle Bodies Not Reportable 01/06/20 07:40 Pelger-Huet Anomaly Not Reportable 01/06/20 07:40 David Rods Not Reportable 01/06/20 07:40 Platelet Estimate Consistent w auto 01/06/20 07:40 Clumped Platelets Not Reportable 01/06/20 07:40 Plt Clumps, EDTA Not Reportable 01/06/20 07:40 Large Platelets Not Reportable 01/06/20 07:40 Giant Platelets Not Reportable 01/06/20 07:40 Platelet Satelliting Not Reportable 01/06/20 07:40 Plt Morphology Comment Not Reportable 01/06/20 07:40 RBC Morphology Not Reportable 01/06/20 07:40 Dimorphic RBCs Not Reportable 01/06/20 07:40 Polychromasia Few 01/06/20 07:40 Hypochromasia 2+ 01/06/20 07:40 Poikilocytosis Not Reportable 01/06/20 07:40 Anisocytosis Not Reportable 01/06/20 07:40 Microcytosis 1+ 01/06/20 07:40 Macrocytosis Not Reportable 01/06/20 07:40 Spherocytes Not Reportable 01/06/20 07:40 Pappenheimer Bodies Not Reportable 01/06/20 07:40 Sickle Cells Not Reportable 01/06/20 07:40 Target Cells Few 01/06/20 07:40 Tear Drop Cells Few 01/06/20 07:40 Ovalocytes Not Reportable 01/06/20 07:40 Helmet Cells Not Reportable 01/06/20 07:40 [place] Bodies Not Reportable 01/06/20 07:40 [place] Rings Not Reportable 01/06/20 07:40 John Paul Cells Not Reportable 01/06/20 07:40 Bite Cells Not Reportable 01/06/20 07:40 Crenated Cell Not Reportable 01/06/20 07:40 Elliptocytes Not Reportable 01/06/20 07:40 Acanthocytes (Spur) Not Reportable 01/06/20 07:40 Rouleaux Not Reportable 01/06/20 07:40 Hemoglobin C Crystals Not Reportable 01/06/20 07:40 Schistocytes Few 01/06/20 07:40 Malaria parasites Not Reportable 01/06/20 07:40 Cornel Bodies Not Reportable 01/06/20 07:40 Hem Pathologist Commnt No 01/06/20 07:40 PT 24.8 Sec. (12.2-14.9) H 01/06/20 07:40 INR 2.19 (0.87-1.13) H 01/06/20 07:40 APTT 74.0 Sec. (24.2-36.6) H* 01/06/20 07:40 Sodium 134 mmol/L (137-145) L 01/09/20 09:34 Potassium 4.9 mmol/L (3.6-5.0) 01/09/20 09:34 Chloride 102.5 mmol/L (98-107) 01/09/20 09:34 Carbon Dioxide 14 mmol/L (22-30) L 01/09/20 09:34 Anion Gap 22 mmol/L 01/09/20 09:34 BUN 38 mg/dL (9-20) H 01/09/20 09:34 Creatinine 1.6 mg/dL (0.8-1.5) H 01/09/20 09:34 Estimated GFR 42 ml/min 01/09/20 09:34 BUN/Creatinine Ratio 24 % 01/09/20 09:34 Glucose 138 mg/dL (75-100) H 01/09/20 09:34 POC Glucose 102 (70-105) 01/09/20 22:49 Hemoglobin A1c 12.4 % (4-6) H 01/06/20 15:36 Lactic Acid 1.90 mmol/L (0.7-2.0) 01/07/20 05:06 Calcium 8.5 mg/dL (8.4-10.2) 01/09/20 09:34 Magnesium 2.20 mg/dL (1.7-2.3) 01/07/20 05:06 Total Bilirubin 0.60 mg/dL (0.1-1.2) 01/06/20 07:40 AST 23 units/L (5-40) 01/06/20 07:40 ALT 8 units/L (7-56) 01/06/20 07:40 Alkaline Phosphatase 50 units/L (35-129) 01/06/20 07:40 Total Creatine Kinase 99 units/L (55-170) 01/06/20 07:40 Troponin T 0.070 ng/mL (0.00-0.029) H 01/06/20 07:40 Total Protein 5.4 g/dL (6.3-8.2) L 01/06/20 07:40 Albumin 2.9 g/dL (3.9-5) L 01/06/20 07:40 Albumin/Globulin Ratio 1.2 % 01/06/20 07:40 Triglycerides 180 mg/dL (2-149) H 01/06/20 07:40 Cholesterol 95 mg/dL (50-199) 01/06/20 07:40 LDL Cholesterol Direct 45 mg/dL (50-130) L 01/06/20 07:40 HDL Cholesterol 38 mg/dL (40-59) L 01/06/20 07:40 Cholesterol/HDL Ratio 2.50 % 01/06/20 07:40 TSH 8.870 mlU/mL (0.270-4.200) H 01/06/20 07:40 Free T4 1.63 ng/dL (0.76-1.46) H 01/06/20 15:36 Urine Color Yellow (Yellow) 01/07/20 07:09 Urine Turbidity Clear (Clear) 01/07/20 07:09 Urine pH 5.0 (5.0-7.0) 01/07/20 07:09 Ur Specific [place] 1.015 (1.003-1.030) 01/07/20 07:09 Urine Protein <15 mg/dl mg/dL (Negative) 01/07/20 07:09 Urine Glucose (UA) >=500 mg/dL (Negative) 01/07/20 07:09 Urine Ketones Neg mg/dL (Negative) 01/07/20 07:09 Urine Blood Neg (Negative) 01/07/20 07:09 Urine Nitrite Neg (Negative) 01/07/20 07:09 Urine Bilirubin Neg (Negative) 01/07/20 07:09 Urine Urobilinogen < 2.0 mg/dL (<2.0) 01/07/20 07:09 Ur Leukocyte Esterase Neg (Negative) 01/07/20 07:09 Urine WBC (Auto) 1.0 /HPF (0.0-6.0) 01/07/20 07:09 Urine RBC (Auto) 3.0 /HPF (0.0-6.0) 01/07/20 07:09 U Epithel Cells (Auto) < 1.0 /HPF (0-13.0) 01/07/20 07:09 Urine Mucus Few /HPF 01/07/20 07:09 Urine Eosinophils 2+ (None Seen) 01/09/20 14:28 Urine Creatinine 55.5 mg/dL (0.1-20.0) H 01/10/20 04:15 Urine Sodium 16 mmol/L 01/10/20 04:15 Fraction Sodium Excret 0.2 01/10/20 04:15 Blood Type O POSITIVE 01/06/20 07:40 Antibody Screen Negative 01/06/20 07:40 Boyd/IV: Voiding Method Urinal IV Catheter Type [Left INT / Saline Lock External Jugular] IV Catheter Type [External INT / Saline Lock Jugular] Active Medications - Current Medications Current Medications: Generic Name Dose Route Start Last Admin Trade Name Freq PRN Reason Stop Dose Admin Acetaminophen 650 mg 01/06/20 11:40 01/08/20 10:10 Tylenol PO 650 mg Q6H PRN Administration Non Cardiac Pain or Temp>100.5 Dextrose 50 ml 01/06/20 11:39 D50w (25gm) Syringe IV Q30MIN PRN Hypoglycemia Protocol Diphenhydramine HCl 25 mg 01/06/20 13:34 Benadryl IV Q6H PRN Itching Heparin Sodium (Porcine) 5,000 unit 01/07/20 22:00 01/09/20 22:13 Heparin SUB-Q 5,000 unit Q12HR PAT Administration Sodium Chloride 1,000 mls @ 125 mls/hr 01/06/20 12:00 01/10/20 06:00 Nacl 0.9% 1000 Ml IV 125 mls/hr DIRECT PAT Administration Ampicillin Sodium/Sulbactam Sodium 1.5 gm in 50 mls @ 100 mls/hr 01/09/20 11:00 01/10/20 03:53 Unasyn/Ns 1.5 Gm/50 Ml IV 100 mls/hr Q8H PAT Administration Protocol Insulin Human Isoph/Insulin Regular 10 unit 01/07/20 17:00 01/09/20 18:46 Humulin 70/30 SUB-Q 10 unit BIDDIAB PTA Administration Insulin Human Lispro 0 unit 01/06/20 16:30 01/09/20 22:39 Humalog SUB-Q Not Given ACHS [facility] Protocol Methylprednisolone Sodium Succinate 60 mg 01/06/20 14:00 01/10/20 06:01 Solu-Medrol IV 60 mg Q8HR PAT Administration Neomycin/Polymyxin/Bacitracin 2 applic 01/06/20 14:02 Triple Antibiotic TP BID PRN Rash Ondansetron HCl 4 mg 01/06/20 11:40 Zofran IV Q4H PRN Nausea And Vomiting Oxycodone/Acetaminophen 1 tab 01/07/20 14:22 01/09/20 22:10 Percocet 5/325 PO 1 tab Q6H PRN Administration Pain, Moderate (4-6) Pantoprazole Sodium 40 mg 01/06/20 12:00 01/09/20 11:38 Protonix PO 40 mg QDAY PAT Administration Polyethylene Glycol 17 gm 01/06/20 11:40 Miralax 3350 PO QDAY PRN Constipation Sodium Bicarbonate 1,300 mg 01/09/20 20:00 01/09/20 22:12 Sodium Bicarbonate PO 1,300 mg TID PAT Administration
[2020-01-10] MEDS: INSULIN LISPRO 100 UNIT/ML SUB-Q SCH ×3 (08:30→16:23)
[2020-01-10] MEDS: SODIUM BICARBONATE 650 MG TAB PO SCH ×3 (08:46→23:03)
[2020-01-10] MEDS: HEPARIN 5,000 UNIT/1 ML VIAL SUB-Q SCH ×2 (09:05→23:04)
[2020-01-10] MEDS: PANTOPRAZOLE 40 MG TAB PO SCH (09:05)
--- NOTE | 2020-01-10 09:52 | Progress Note ---
Assessment and Plan Impression * Nonoliguric acute kidney injury secondary to prerenal azotemia on chronic kidney disease --Renal ultrasound: unremarkable w/ exception of bilateral renal cysts * Drug rash * Syncope * Metabolic acidosis * Chronic atrial fibrillation * Hypertension * Type II diabetes mellitus Recommendation * AM labs are pending - continue current management * Continue IVF * Cotninue po bicarbonate * Await pending vasculitis work-up * Urine eos pending * Avoid nephrotoxins * Monitor fluid status and electrolytes closely Subjective Date of service: 01/10/20 Interval history: Transferred from IMCU to floor. No acute events overnight. Objective - Vital Signs Vital signs: Vital Signs - 12hr 01/09/20 01/09/20 01/09/20 22:00 22:10 22:36 Temperature Pulse Rate 67 71 Respiratory 19 16 17 Rate Blood Pressure 106/53 106/53 O2 Sat by Pulse 100 100 Oximetry 01/09/20 01/09/20 01/09/20 22:40 23:03 23:10 Temperature 97.4 F L Pulse Rate 73 86 Respiratory 17 18 20 Rate Blood Pressure 106/53 139/63 O2 Sat by Pulse 99 99 Oximetry 01/10/20 01/10/20 01/10/20 01:10 03:06 08:08 Temperature 97.5 F L 97.5 F L Pulse Rate 84 79 Respiratory 20 18 Rate Blood Pressure 112/61 125/63 O2 Sat by Pulse 99 98 98 Oximetry - General Appearance General appearance: well-developed, well-nourished EENT: ATNC Respiratory: Present: Clear to Ascultation Cardiology: regular, S1S2 Gastrointestinal: normal, no tenderness, no distended Integumentary: rash (bullae to trunk, upper extremities) Neurologic: no focal deficit Psychiatric: cooperative - Lab 01/09/20 09:34 01/09/20 09:34 Most recent lab results Calcium 8.5 mg/dL (8.4-10.2) 01/09/20 09:34 Magnesium 2.20 mg/dL (1.7-2.3) 01/07/20 05:06 Urine Creatinine 55.5 mg/dL (0.1-20.0) H 01/10/20 04:15 Urine Sodium 16 mmol/L 01/10/20 04:15 Medications & Allergies - Medications Allergies/Adverse Reactions: Allergies acetaminophen [From [place]] Allergy (Verified 01/06/20 13:32) Unknown ethambutol HCl [From Myambutol] Allergy (Verified 01/06/20 13:32) Unknown hydralazine Allergy (Verified 01/06/20 13:32) Unknown hydrocodone bitartrate [From [place]] Allergy (Verified 01/06/20 13:32) Unknown levofloxacin [From Levaquin] Allergy (Verified 01/06/20 13:32) Swelling naproxen Allergy (Verified 01/06/20 13:32) Unknown rifampin [From Rifadin] Allergy (Verified 01/06/20 13:32) Unknown tramadol HCl [From Ultram] Allergy (Verified 01/06/20 13:32) Unknown allpurinol Allergy (Uncoded 07/16/13 02:36) Unknown sulindac Allergy (Uncoded 07/16/13 02:36) Unknown Home Medications: Home Medications Medication Instructions Recorded Confirmed Last Taken Type Atorvastatin (Nf) [Lipitor] 20 mg PO QHS 07/16/13 01/06/20 01/15/14 History lisinopriL [Zestril TAB] 20 mg PO QDAY 07/16/13 01/06/20 01/15/14 History Colchicine 0.6 mg PO BID 01/06/20 01/06/20 Unknown History Dabigatran Etexilate Mesylate 150 mg PO DAILY 01/06/20 01/06/20 Unknown History [Pradaxa] predniSONE 2.5 mg PO Q48H 01/06/20 01/06/20 Unknown History Active Medications: Generic Name Dose Route Start Last Admin Trade Name Freq PRN Reason Stop Dose Admin Acetaminophen 650 mg 01/06/20 11:40 01/08/20 10:10 Tylenol PO 650 mg Q6H PRN Administration Non Cardiac Pain or Temp>100.5 Dextrose 50 ml 01/06/20 11:39 D50w (25gm) Syringe IV Q30MIN PRN Hypoglycemia Protocol Diphenhydramine HCl 25 mg 01/06/20 13:34 Benadryl IV Q6H PRN Itching Heparin Sodium (Porcine) 5,000 unit 01/07/20 22:00 01/10/20 09:05 Heparin SUB-Q 5,000 unit Q12HR PAT Administration Sodium Chloride 1,000 mls @ 125 mls/hr 01/06/20 12:00 01/10/20 06:00 Nacl 0.9% 1000 Ml IV 125 mls/hr DIRECT PAT Administration Ampicillin Sodium/Sulbactam Sodium 1.5 gm in 50 mls @ 100 mls/hr 01/09/20 11:00 01/10/20 03:53 Unasyn/Ns 1.5 Gm/50 Ml IV 100 mls/hr Q8H PAT Administration Protocol Insulin Human Isoph/Insulin Regular 10 unit 01/07/20 17:00 01/09/20 18:46 Humulin 70/30 SUB-Q 10 unit BIDDIAB PAT Administration Insulin Human Lispro 0 unit 01/06/20 16:30 01/10/20 08:30 Humalog SUB-Q Not Given ACHS [facility] Protocol Methylprednisolone Sodium Succinate 60 mg 01/06/20 14:00 01/10/20 06:01 Solu-Medrol IV 60 mg Q8HR PAT Administration Neomycin/Polymyxin/Bacitracin 2 applic 01/06/20 14:02 Triple Antibiotic TP BID PRN Rash Ondansetron HCl 4 mg 01/06/20 11:40 Zofran IV Q4H PRN Nausea And Vomiting Oxycodone/Acetaminophen 1 tab 01/07/20 14:22 01/09/20 22:10 Percocet 5/325 PO 1 tab Q6H PRN Administration Pain, Moderate (4-6) Pantoprazole Sodium 40 mg 01/06/20 12:00 01/10/20 09:05 Protonix PO 40 mg QDAY PAT Administration Polyethylene Glycol 17 gm 01/06/20 11:40 Miralax 3350 PO QDAY PRN Constipation Sodium Bicarbonate 1,300 mg 01/09/20 20:00 01/10/20 08:46 Sodium Bicarbonate PO 1,300 mg TID PAT Administration
--- NOTE | 2020-01-10 11:45 | Consultation ---
History of Present Illness - Reason for Consult Consult date: 01/10/20 - History of Present Illness 79-year-old man who is a [place] Laotian speaker with a past medical history of hypertension, CAD status post CABG, A. fib admitted with loss of consciousness. This was witnessed by his . He was noted to be on the toilet after having a bowel movement, and slumped over with loss of consciousness. He was unconscious for approximately 20 minutes afterwards. No seizure-like movements noted. Family noted that prior to admission he accidentally took allopurinol and was having a skin reaction. He was started on steroids at that time. Afebrile since admission with a white count of 16. Currently receiving Unasyn. Blood and urine cultures no growth to date. Imaging personally reviewed: Chest x-ray no abnormality detected CT abdomen pelvis: No acute processes Review of Systems: Bold if positive, otherwise negative General: fevers, chills, rigors HEENT: visual disturbance, diplopia, eye pain Respiratory: cough, sputum, hemoptysis, shortness of breath Cardiovascular: chest pain, syncope Gastrointestinal: nausea, vomiting, diarrhea, abdominal pain Genitourinary: dysuria, hematuria, flank pain Musculoskeletal: neck pain, back pain, joint pain, edema Neurologic: headaches, seizures Hematologic: easy bruising or bleeding Endocrine: night sweats, acute weight loss Skin: rash, jaundice, redness Psychiatric: suicidal, homicidal ideation Past History Past Medical History: atrial fib, diabetes, hypertension, other (Chronic kidney disease) Past Surgical History: No surgical history Social history: no significant social history Family history: no significant family history Medications and Allergies Allergies Allergy/AdvReac Type Severity Reaction Status Date / Time acetaminophen [From [place]] Allergy Unknown Verified 01/06/20 13:32 ethambutol HCl Allergy Unknown Verified 01/06/20 13:32 [From Myambutol] hydralazine Allergy Unknown Verified 01/06/20 13:32 hydrocodone bitartrate Allergy Unknown Verified 01/06/20 13:32 [From Tropic] levofloxacin [From Levaquin] Allergy Swelling Verified 01/06/20 13:32 naproxen Allergy Unknown Verified 01/06/20 13:32 rifampin [From Rifadin] Allergy Unknown Verified 01/06/20 13:32 tramadol HCl [From Ultram] Allergy Unknown Verified 01/06/20 13:32 allpurinol Allergy Unknown Uncoded 07/16/13 02:36 sulindac Allergy Unknown Uncoded 07/16/13 02:36 Home Medications Medication Instructions Recorded Confirmed Last Taken Type Atorvastatin (Nf) [Lipitor] 20 mg PO QHS 07/16/13 01/06/20 01/15/14 History lisinopriL [Zestril TAB] 20 mg PO QDAY 07/16/13 01/06/20 01/15/14 History Colchicine 0.6 mg PO BID 01/06/20 01/06/20 Unknown History Dabigatran Etexilate Mesylate 150 mg PO DAILY 01/06/20 01/06/20 Unknown History [Pradaxa] predniSONE 2.5 mg PO Q48H 01/06/20 01/06/20 Unknown History Active Meds: Active Medications Acetaminophen (Tylenol) 650 mg PO Q6H PRN PRN Reason: Non Cardiac Pain or Temp>100.5 Last Admin: 01/08/20 10:10 Dose: 650 mg Documented by: Dextrose (D50w (25gm) Syringe) 50 ml IV Q30MIN PRN; Protocol PRN Reason: Hypoglycemia Diphenhydramine HCl (Benadryl) 25 mg IV Q6H PRN PRN Reason: Itching Heparin Sodium (Porcine) (Heparin) 5,000 unit SUB-Q Q12HR [facility] Last Admin: 01/10/20 09:05 Dose: 5,000 unit Documented by: Sodium Chloride (Nacl 0.9% 1000 Ml) 1,000 mls @ 125 mls/hr IV DIRECT PAT Last Admin: 01/10/20 06:00 Dose: 125 mls/hr Documented by: Ampicillin Sodium/Sulbactam Sodium (Unasyn/Ns 1.5 Gm/50 Ml) 1.5 gm in 50 mls @ 100 mls/hr IV Q8H [facility]; Protocol Last Admin: 01/10/20 03:53 Dose: 100 mls/hr Documented by: Insulin Human Isoph/Insulin Regular (Humulin 70/30) 10 unit SUB-Q BIDDIAB [facility] Last Admin: 01/09/20 18:46 Dose: 10 unit Documented by: Insulin Human Lispro (Humalog) 0 unit SUB-Q ACHS [facility]; Protocol Last Admin: 01/10/20 08:30 Dose: Not Given Documented by: Methylprednisolone Sodium Succinate (Solu-Medrol) 60 mg IV Q8HR [facility] Last Admin: 01/10/20 06:01 Dose: 60 mg Documented by: Neomycin/Polymyxin/Bacitracin (Triple Antibiotic) 2 applic TP BID PRN PRN Reason: Rash Ondansetron HCl (Zofran) 4 mg IV Q4H PRN PRN Reason: Nausea And Vomiting Oxycodone/Acetaminophen (Percocet 5/325) 1 tab PO Q6H PRN PRN Reason: Pain, Moderate (4-6) Last Admin: 01/09/20 22:10 Dose: 1 tab Documented by: Pantoprazole Sodium (Protonix) 40 mg PO QDAY [facility] Last Admin: 01/10/20 09:05 Dose: 40 mg Documented by: Polyethylene Glycol (Miralax 3350) 17 gm PO QDAY PRN PRN Reason: Constipation Sodium Bicarbonate (Sodium Bicarbonate) 1,300 mg PO TID [facility] Last Admin: 01/10/20 08:46 Dose: 1,300 mg Documented by: Physical Examination - Physical Exam Narrative exam: Physical Exam: Constitutional: Alert, cooperative. No acute distress Head, Ears, Nose: Normocephalic, atraumatic. External ears, nose normal Eyes: Conjunctivae/corneas clear. No icterus. No ptosis. Neck: Supple, no meningeal signs Oral: dentition fair, no thrush Cardiovascular: S1, S2 normal. Respiratory: Good air entry, clear to auscultation bilaterally GI: Soft, non-tender; bowel sounds normal. No peritoneal signs. Musculoskeletal: No pedal edema, no cyanosis. Skin: No rash or abscess Hem/Lymphatic: No palpable cervical or supraclavicular nodes. No lymphangitis Psych: Mood ok. Affect normal Neurological: Awake, alert, oriented. No gross abnormality - Constitutional Vitals: Vital Signs Temp Pulse Resp BP Pulse Ox 97.5 F L 79 18 125/63 98 01/10/20 08:08 01/10/20 08:08 01/10/20 08:08 01/10/20 08:08 01/10/20 08:08 Temperature -Last 24 Hours Temperature 97.5 F Temperature 97.5 F Temperature 97.4 F Temperature 97.3 F Temperature 98.7 F Results - Labs CBC & Chem 7: 01/09/20 09:34 01/09/20 09:34 Labs: Abnormal lab results 01/09/20 01/09/20 01/10/20 Range/Units 12:15 18:37 04:15 POC Glucose 211 H 339 H (70-105) Urine Creatinine 55.5 H (0.1-20.0) mg/dL 01/10/20 Range/Units 08:16 POC Glucose 61 L (70-105) Urine Creatinine (0.1-20.0) mg/dL Assessment and Plan Cultures: Blood culture 01/06/2020 no growth to date Urine culture 01/07/2020 no growth to date A/P: 79-year-old man past medical history hypertension, CAD status post CABG, A. fib admitted with vasovagal episode associated with bowel movement, allergic skin reaction to allopurinol #Loss of consciousness: Likely a vasovagal episode associated with having a bowel movement. Per primary. #Allopurinol skin reaction: Possible SJS versus TEN. Recommend avoidance of allopurinol in the future. If patient fails to improve recommend transfer to facility with dermatology. #Leukocytosis: Likely secondary to steroids. No evidence of current infection. Stop Unasyn Recs: -Stop Unasyn -Monitor leukocytosis when steroid stopped -May need dermatologic evaluation I do not see evidence of infection, as such I will sign off. Please call with any questions. MD Francie [facility] M: [phone] O: [phone] F: [phone]
[2020-01-10 17:33] LABS: Hematocrit 27.7 % (35.5-45.6); Hemoglobin 9.1 gm/dl (11.8-15.2); Lymphocytes # (Auto) 0.6 K/mm3 (1.2-5.4); Lymphocytes % (Auto) 6.6 % (13.4-35.0); Mean Corpuscular HGB Conc 33 % (32-34); Monocytes # (Auto) 0.5 K/mm3 (0.0-0.8); Monocytes % (Auto) 5.2 % (0.0-7.3); Platelet Count 289 K/mm3 (140-440); Red Blood Count 4.19 M/mm3 (3.65-5.03); Red Cell Distribution Width 19.2 % (13.2-15.2)
[2020-01-10 17:34] LABS: Mean Corpuscular Volume 66 fl (84-94)
[2020-01-10 17:42] LABS: Calcium 7.9 mg/dL (8.4-10.2)
[2020-01-11 06:41] LABS: Calcium 7.9 mg/dL (8.4-10.2)
--- NOTE | 2020-01-11 09:48 | Progress Note ---
Assessment and Plan Impression * Nonoliguric acute kidney injury secondary to prerenal azotemia vs AIN on chronic kidney disease --Renal ultrasound: unremarkable w/ exception of bilateral renal cysts --Urine eos 2+ * Drug rash * Syncope * Metabolic acidosis * Chronic atrial fibrillation * Hypertension * Type II diabetes mellitus Recommendation * Renal function improved * Continue gentle IVF * Continue po bicarbonate * Await pending vasculitis work-up * Steroids per primary team * Avoid nephrotoxins * Monitor fluid status and electrolytes closely * Will follow peripherally Subjective Date of service: 01/11/20 Interval history: Patient has no complaints today Objective - Vital Signs Vital signs: Vital Signs - 12hr 01/11/20 01:20 Temperature 98.1 F Pulse Rate 96 H Respiratory 18 Rate Blood Pressure 124/53 O2 Sat by Pulse 98 Oximetry - General Appearance General appearance: well-developed, well-nourished EENT: ATNC Respiratory: Present: Clear to Ascultation Cardiology: regular, S1S2 Gastrointestinal: normal, no tenderness, no distended Integumentary: rash (+bullae to trunk, bilateral upper extremities) Neurologic: no focal deficit Psychiatric: cooperative - Lab 01/10/20 16:48 01/11/20 05:59 Most recent lab results Calcium 7.9 mg/dL (8.4-10.2) L 01/11/20 05:59 Magnesium 2.20 mg/dL (1.7-2.3) 01/07/20 05:06 Urine Creatinine 55.5 mg/dL (0.1-20.0) H 01/10/20 04:15 Urine Sodium 16 mmol/L 01/10/20 04:15 Medications & Allergies - Medications Allergies/Adverse Reactions: Allergies acetaminophen [From [place]] Allergy (Verified 01/06/20 13:32) Unknown ethambutol HCl [From [place]] Allergy (Verified 01/06/20 13:32) Unknown hydralazine Allergy (Verified 01/06/20 13:32) Unknown hydrocodone bitartrate [From [place]] Allergy (Verified 01/06/20 13:32) Unknown levofloxacin [From Levaquin] Allergy (Verified 01/06/20 13:32) Swelling naproxen Allergy (Verified 01/06/20 13:32) Unknown rifampin [From Rifadin] Allergy (Verified 01/06/20 13:32) Unknown tramadol HCl [From Ultram] Allergy (Verified 01/06/20 13:32) Unknown allpurinol Allergy (Uncoded 07/16/13 02:36) Unknown sulindac Allergy (Uncoded 07/16/13 02:36) Unknown Home Medications: Home Medications Medication Instructions Recorded Confirmed Last Taken Type Atorvastatin (Nf) [Lipitor] 20 mg PO QHS 07/16/13 01/06/20 01/15/14 History lisinopriL [Zestril TAB] 20 mg PO QDAY 07/16/13 01/06/20 01/15/14 History Colchicine 0.6 mg PO BID 01/06/20 01/06/20 Unknown History Dabigatran Etexilate Mesylate 150 mg PO DAILY 01/06/20 01/06/20 Unknown History [Pradaxa] predniSONE 2.5 mg PO Q48H 01/06/20 01/06/20 Unknown History Active Medications: Generic Name Dose Route Start Last Admin Trade Name Freq PRN Reason Stop Dose Admin Acetaminophen 650 mg 01/06/20 11:40 01/08/20 10:10 Tylenol PO 650 mg Q6H PRN Administration Non Cardiac Pain or Temp>100.5 Dextrose 50 ml 01/06/20 11:39 D50w (25gm) Syringe IV Q30MIN PRN Hypoglycemia Protocol Heparin Sodium (Porcine) 5,000 unit 01/07/20 22:00 01/10/20 23:04 Heparin SUB-Q 5,000 unit Q12HR PAT Administration Sodium Chloride 1,000 mls @ 125 mls/hr 01/06/20 12:00 01/10/20 14:41 Nacl 0.9% 1000 Ml IV 125 mls/hr DIRECT PAT Administration Insulin Human Isoph/Insulin Regular 10 unit 01/07/20 17:00 01/10/20 16:24 Humulin 70/30 SUB-Q 10 unit BIDDIAB PAT Administration Insulin Human Lispro 0 unit 01/06/20 16:30 01/10/20 16:23 Humalog SUB-Q 6 unit ACHS PAT Administration Protocol Methylprednisolone Sodium Succinate 40 mg 01/11/20 10:00 Solu-Medrol IV Q12H PAT Neomycin/Polymyxin/Bacitracin 2 applic 01/06/20 14:02 Triple Antibiotic TP BID PRN Rash Ondansetron HCl 4 mg 01/06/20 11:40 Zofran IV Q4H PRN Nausea And Vomiting Oxycodone/Acetaminophen 1 tab 01/07/20 14:22 01/09/20 22:10 Percocet 5/325 PO 1 tab Q6H PRN Administration Pain, Moderate (4-6) Pantoprazole Sodium 40 mg 01/06/20 12:00 01/10/20 09:05 Protonix PO 40 mg QDAY PAT Administration Polyethylene Glycol 17 gm 01/06/20 11:40 Miralax 3350 PO QDAY PRN Constipation Sodium Bicarbonate 1,300 mg 01/09/20 20:00 01/10/20 23:03 Sodium Bicarbonate PO 1,300 mg TID PAT Administration
[2020-01-11] MEDS ORDERED: methylPREDNISolone Sod Succinate 125 MG/2 ML INJ IV SCH (10:00)
[2020-01-11] MEDS: PANTOPRAZOLE 40 MG TAB PO SCH (12:08)
[2020-01-11] MEDS: SODIUM BICARBONATE 650 MG TAB PO SCH (12:08)
[2020-01-11] MEDS: HEPARIN 5,000 UNIT/1 ML VIAL SUB-Q SCH (12:08)
[2020-01-11] MEDS: INSULIN NPH/REGULAR 70/30 INJ SUB-Q SCH (12:14)
[2020-01-11] MEDS: INSULIN LISPRO 100 UNIT/ML SUB-Q SCH (12:15)
--- NOTE | 2020-01-11 14:20 | Discharge Summary ---
Providers - Providers Date of Admission: 01/06/20 10:12 Date of discharge: 01/11/20 Attending physician: MEENAKSHI KONG 01/06/20 11:42 Consult to Physician [CONS] Routine Comment: Consulting Provider: CHERYL LOWRY Physician Instructions: Reason For Exam: ARF 01/06/20 11:44 Consult to Dietitian/Nutrition [CONS] Routine Physician Instructions: Reason For Exam: Reason for Consult: Diet education 01/06/20 13:27 Consult to Wound/ET Nurse [CONS] Stat Reason For Exam: generalized skin peeling at electrode sight 01/08/20 17:33 Occupational Therapy Evaluate and Treat [CONS] Routine Comment: Reason For Exam: Syncope/General debility/evaluate and treat Physical Therapy Evaluation and Treat [CONS] Routine Comment: Reason For Exam: Syncope/General debility/evaluate and treat 01/09/20 08:48 Consult to Physician [CONS] Routine Comment: Consulting Provider: JO LIM Physician Instructions: Reason For Exam: a allergic reaction to allopurinol/Brayan Roth Primary care physician: EDUCATION DIRECTOR Hospitalization Condition: Critical Disposition: DC/[place]-06 HOME UND[facility] Time spent for discharge: 32 min Core Measure Documentation - Palliative Care Palliative Care/ Comfort Measures: Not Applicable Exam - Constitutional Vitals: Temp Pulse Resp BP Pulse Ox 98.1 F 101 H 18 170/81 100 01/11/20 01:20 01/11/20 08:47 01/11/20 08:47 01/11/20 08:47 01/11/20 08:47 Plan Activity: advance as tolerated, fall precautions Diet: diabetic Wound: per wound nurse instructions, other (Home wound care) Special Instructions: physical therapy Additional Instructions: Advised not to take allopurinol[ You have allergic reaction]. Advised to follow private bill clerk Mirella Hammer in 3 to 4 days. Home wound care, home PT. Fall precautions. Advised to follow with your private research methodologist per schedule. Advised to continue metformin as before. Hold Pradaxa if you notice any bleeding from the skin lesions Follow up with: JURGEN LINTON MD [Staff Physician] - 7 Days PRIMARY CARE, [Primary Care Provider] - 3-5 Days Prescriptions: diphenhydrAMINE [Benadryl CAP] 25 mg PO Q8HR PRN #30 capsule PRN Reason: Itching Famotidine [Pepcid] 20 mg PO BID #30 tablet
[2020-01-11 14:47] VITALS: BP 178/85
[2020-01-12 00:17] LABS: Albumin 2.5 g/dL (3.8-4.8); Gamma Globulin 0.6 g/dL (0.8-1.7)
[2020-01-12 08:43] LABS: Myeloperoxidase Antibody <1.0 AI (<1.0)
== END 2020-01-11 18:00 | disposition home health service (06) | DRG 682 ==
LOC: ED 06:19 → IMCU 10:12 → 2B-ACE 01-09 23:15
PROVIDERS: ADMIT Internal Medicine; ATTEND Internal Medicine
DX: N17.9 Acute kidney failure, unspecified (principal); E43 Unspecified severe protein-calorie malnutrition; E87.2 Acidosis; I48.20 Chronic atrial fibrillation, unspecified; R65.10 Systemic inflammatory response syndrome (SIRS) of non-infectious origin without acute organ dysfunction; M10.9 Gout, unspecified; I12.9 Hypertensive chronic kidney disease with stage 1 through stage 4 chronic kidney disease, or unspecified chronic kidney disease; E11.22 Type 2 diabetes mellitus with diabetic chronic kidney disease; N28.1 Cyst of kidney, acquired; T50.4X5A Adverse effect of drugs affecting uric acid metabolism, initial encounter; E83.42 Hypomagnesemia; D72.829 Elevated white blood cell count, unspecified; J45.909 Unspecified asthma, uncomplicated; I95.9 Hypotension, unspecified; I25.10 Atherosclerotic heart disease of native coronary artery without angina pectoris; Z88.1 Allergy status to other antibiotic agents; Z88.5 Allergy status to narcotic agent; Z79.01 Long term (current) use of anticoagulants; Z79.899 Other long term (current) drug therapy; Z95.1 Presence of aortocoronary bypass graft; Y92.89 Other specified places as the place of occurrence of the external cause; Z68.21 Body mass index [BMI] 21.0-21.9, adult
CPT/HCPCS: 36415; 70450; 71045; 72125; 74176; 76770; 80048; 80053; 80061; 81001; 82140; 82271; 82550; 82565; 82570; 82962; 83036; 83735; 84165; 84295; 84300; 84439; 84443; 84480; 84484; 85007; 85025; 85027; 85610; 85730; 86021; 86160; 86225; 86850; 86900; 86901; 87040; 87086; 87116; 89050; 93005; 93010; 96365; 96372; 96375; G0378; A6250; J0295; J0696; J1200; J1644; J1815; J2930; J3475; J7030